=== PATIENT | female | born 1950 | race Caucasian/White ===

== ENCOUNTER → 2017-08-05 | Outpatient (CLI) | payer OTHER ==
[~2017-08-05] MED LIST: CLTP PO; METF500T PO; MULTTAB58 PO; NAPR1TAB9 PO; OMEG10007 PO; ZCRT/40 PO
--- NOTE | 2017-08-05 14:30 | MAMMOGRAPHY REPORT ---
BILATERAL DIGITAL SCREENING MAMMOGRAM TOMOSYNTHESIS WITH CAD: 08/05/2017 CLINICAL HISTORY: Routine screening. Patient has no complaints. TECHNIQUE: Breast tomosynthesis in addition to standard 2D mammography was performed. Current study was also evaluated with a Computer Aided Detection (CAD) system. COMPARISON: Comparison is made to exams dated: 04/19/2015 mammogram, 12/01/2013 mammogram, 08/04/2012 m ammogram, 07/30/2011 mammogram, 07/27/2010 mammogram, and 07/26/2009 mammogram - [facility]. BREAST COMPOSITION: There are scattered areas of fibroglandular density in both breasts. FINDINGS: There are stable benign-appearing microcalcifications in the right breast. A nodular asymm etry in the lateral right breast appears similar on prior mammograms dating back to at least 12/02/19 14 and is most likely benign given greater than 2 years of stability. A left breast asymmetry is les s prominent on the current exam. No new suspicious mass, architectural distortion or cluster of susp icious microcalcifications is seen. IMPRESSION: ACR BI-RADS CATEGORY 1: NEGATIVE There is no mammographic evidence of malignancy. A 1 year screening mammogram is recommended. The pa tient will receive written notification of the results. Approximately 10% of breast cancers are not detected with mammography. A negative mammographic report should not delay biopsy if a clinically suggestive mass is present. Inge Fonseca M.D. ay/:08/05/2017 12:42:18 [employer]: Nati Andrew, [facility] letter sent: Normal 1/2 BI-RADS Code: ACR BI-RADS Category 1: Negative
== END | disposition home or self-care (01) ==
LOC: C.MAMM 10:27
PROVIDERS: ATTEND Family Medicine
DX: Z12.31 Encounter for screening mammogram for malignant neoplasm of breast (principal)

== ENCOUNTER 2021-12-30 16:46 | Observation (INO) ==
[2021-12-30] MEDS ORDERED: ASPIRIN 81 MG CHEW PO STA (17:12)
--- NOTE | 2021-12-30 17:20 | Emergency Department Note ---
History of Present Illness General Chief complaint: Chest Pain Stated complaint: CHEST PAIN, DIZZINESS Time Seen by Provider: 12/30/21 17:01 Source: patient and family ( who is at the bedside) Mode of arrival: ambulatory Limitations: no limitations History of Present Illness Maximum Pain Intensity: 4 This patient is 71-year-old female who comes in after having episode of chest pain which started 1:00 she describes as a dull ache. She took 81 mg of aspirin and said it helped significantly and now it is down about a 4 out of 10. She does have ongoing epigastric pain which she had last night she has had this for about a year is worse at night and she was put on omeprazole by her doctor. She said that last night she had some took some Pepto once asleep and felt better she woke up and had it again. With the chest pain today she did have some slight nausea she also had episode of diarrhea this morning without blood. She has had no diaphoresis no shortness of breath the pain does radiate to her neck and back a little bit she says it may be slightly pleuritic at time it slightly increases with palpation she has noticed no change with movement and nothing else makes it better or worse. No history of similar. No known cardiac history Home Medications Medication Instructions Recorded Confirmed Type atorvastatin 40 mg tablet 40 mg PO HS 12/30/21 12/30/21 History canagliflozin 300 mg tablet 300 mg PO DAILYBB 12/30/21 12/30/21 History (Invokana) linagliptin 5 mg tablet (Tradjenta) 5 mg PO .DAILY AT NOON 12/30/21 12/30/21 History metformin 1,000 mg tablet 1,000 mg PO . ON HOLD 12/30/21 12/30/21 History omeprazole 40 mg capsule,delayed 40 mg PO DAILYBB 12/30/21 12/30/21 History release Allergies Allergy/AdvReac Type Severity Reaction Status Date / Time fluconazole AdvReac Mild 'ITCHY' Unverified 12/30/21 20:27 Past Med/Surg History Social History Smoking Status: Never smoker Immunizations: Past medical historytype 2 diabetes. Not on insulin. No hypertension. She does have hypercholesteremia. Denies known history of cardiac disease, pulm onary disease, blood clots. She has had her gallbladder removed. Family historyher mother had coronary artery disease/[place] Social history she does not smoke or drink or use drugs. She is and lives locally with her . She is followed by Dr. Shah AllergiesDiflucan Review of Systems A total of 10 systems reviewed and were otherwise negative Physical Exam Vital Signs Vital Signs - 24 hr 12/30/21 16:49 12/30/21 17:27 12/30/21 17:35 Temperature 37.1 C Temperature Source Temporal Artery Scan Pulse Rate 80 Pulse Rate [Left] 78 Pulse Rhythm [Left] Regular Pulse Strength [Left] Normal Respiratory Rate 18 16 Respiratory Effort / Characteristics Non-Labored Respiratory Depth Normal Blood Pressure 154/78 H Blood Pressure [Left Arm] 144/87 H Blood Pressure Mean 103 Blood Pressure Mean [Left Arm] 106 Blood Pressure Position [Left Arm] Lying Pulse Oximetry 96 100 97 Oxygen Delivery Method Room Air Room Air Sepsis Recent Fever Within 48 Hours No Sepsis New/Unexplained Change in Mental Status No Sepsis Action Taken by Nursing No Action Required 12/30/21 19:10 12/30/21 20:18 Temperature Temperature Source Pulse Rate Pulse Rate [Left] 72 71 Pulse Rhythm [Left] Regular Pulse Strength [Left] Normal Respiratory Rate 18 21 Respiratory Effort / Characteristics Non-Labored Spontaneous Non-Labored Spontaneous Respiratory Depth Normal Normal Blood Pressure Blood Pressure [Left Arm] 127/76 126/74 Blood Pressure Mean Blood Pressure Mean [Left Arm] 93 91 Blood Pressure Position [Left Arm] Sitting Sitting Pulse Oximetry 97 97 Oxygen Delivery Method Room Air Room Air Sepsis Recent Fever Within 48 Hours Sepsis New/Unexplained Change in Mental Status Sepsis Action Taken by Nursing General: Well developed well nourished older female who appears in no acute distress, breathing comfortably on room air. Normal speech HEENT: Normal cephalic atraumatic. Pupils are equal round and reactive to light. Extraocular movements are intact. Oropharynx is pink with moist mucous membranes. No swelling of the mouth lips or tongue. Neck: Supple with a midline trachea. No meningeal signs or stiffness, no JVD or bruits. No Stridor. Chest: Clear to auscultation bilaterally. No wheezes or rhonchi. No increased work of breathing. Chest is minimally reproducibly tender. Heart: Regular rate and rhythm without murmurs or gallops. Abdomen: Soft nontender, nondistended without rebound guarding or rigidity. Extremities: No cyanosis clubbing or edema. No calf tenderness or assymetry Spine/Back. Non tender to palpation. No CVA tenderness Skin: Good turgor without rashes. Neurologic exam: Cranial nerves two through 12 are intact. Motor and sensation are intact and symmetrical throughout. Procedures Free Text Procedures Start Time:17:12 12/30/21 Reason: Patient with PMHx of diabetes and recent chest pain underwent ED Observation for chest pain. Fam Hx: Coronary artery disease SocHx: See Below Summary: This patient has been having chest pain and was observed in the ED. She was placed on a housecleaner floor and blood testing was obtained as well as an EKG. Her initial EKG does not show any STEMI changes she does have some nonspecific T wave flattening and inversions which may be more pronounced compared to old. Her initial troponin is mildly elevated. She had a second troponin which is also mildly elevated but is trending upward compared to the first her EKG is unchanged. Based on this I do believe she needs to be admitted for further treatment and evaluation as there is concern for a cardiac event. She has remained stable. When I rechecked her after the second troponin was back she was resting comfortably in bed and denied any chest pain she was eating a meal. Disposition: Admit 12/31/21. 0022 Total Time: 7 hours 44 min Course Administered Medications Atorvastatin Calcium (Atorvastatin 40 Mg Tab) 40 mg PO HS AVRIL Stop: 01/29/22 23:14 Last Admin: 12/31/21 00:10 Dose: 40 mg Documented by: [id number] Insulin Aspart (Insulin Aspart Per Unit) 0 units SC Q6 AVRIL Stop: 01/29/22 23:14 Last Admin: 12/31/21 00:11 Dose: 2 units Documented by: [id number] Cosigned by: [id number] Insulin Glargine (Insulin Glargine Solostar 100 Units/Ml 3 Ml Pen) 5 units SC HS AVRIL Stop: 01/29/22 23:14 Last Admin: 12/31/21 00:14 Dose: 5 units Documented by: [id number] Cosigned by: [id number] Discontinued Medications Aspirin (Aspirin 81 Mg Chew) 243 mg PO NOW STA Stop: 12/30/21 17:13 Last Admin: 12/30/21 17:27 Dose: 243 mg Documented by: [id number] Ioversol (Optiray 320 125ml) 120 ml IV ONCE ONE Stop: 12/30/21 18:55 Last Admin: 12/30/21 18:56 Dose: 120 ml Documented by: [id number] Medical Decision Making Differential Diagnosis Acute coronary syndrome, arrhythmia, GERD, aneurysm, CHF, pulmonary disease, peptic ulcer disease, infection, pancreatitis, electrolyte or metabolic abnormality, COVID Medical Records Attestation: I reviewed the patient's medical records. Home Medications Current Medication List: was personally reviewed by me Laboratory Data Attestation: I reviewed the patient's lab results. Result diagrams: 12/30/21 17:05 12/30/21 17:05 Lab Results 12/30/21 12/30/21 12/30/21 Range/Units 17:05 17:05 17:05 WBC 10.00 (4.8-10.8) K/uL RBC 4.51 (4.2-5.4) M/uL Hgb 13.9 (12.0-16.0) g/dL Hct 43.0 (37-47) % MCV 95.3 (80-100) fL MCH 30.8 (25-34) pg MCHC 32.3 (32-36) g/dL RDW Std Deviation 48.1 H (36.4-46.3) fL RDW Coeff of Susan 13.8 (11.5-14.5) % Plt Count 381 (130-400) K/uL MPV 9.2 (7.4-10.4) fL Immature Gran % (Auto) 0.0 % Neut % (Auto) 62.0 % Lymph % (Auto) 28.1 % [place] % (Auto) 7.0 % Eos % (Auto) 2.3 % Baso % (Auto) 0.6 % Neut # (Auto) 6.20 (1.4-6.5) K/uL Lymph # (Auto) 2.81 (1.2-3.4) K/uL [place] # (Auto) 0.70 H (0.11-0.59) K/uL Eos # (Auto) 0.23 (0-0.5) K/uL Baso # (Auto) 0.06 (0-0.2) K/uL Immature Gran # (Auto) 0.00 (0.00-0.02) K/uL PT 10.5 (9.0-12.0) Seconds INR 1.0 (0.9-1.1) APTT 24.5 (21.0-31.0) Seconds PTT Ratio 0.9 D-Dimer 630 H* (0-500) ug/L FEU Sodium 137 (136-145) mmol/L Potassium 3.7 (3.5-5.1) mmol/L Chloride 100 (98-107) mmol/L Carbon Dioxide 25 (21-32) mmol/L Anion Gap 12 H (3-11) BUN 21 (6-23) mg/dl Creatinine 0.73 (0.6-1.2) mg/dl Est Cr Clr Drug Dosing 54.9 ml/min Est GFR ( Amer) 97.4 ml/min Est GFR (Non-Af Amer) 84.0 ml/min BUN/Creatinine Ratio 28.8 H (10-20) Glucose 151 H (70-99(Fasting)) mg/dl Calcium 9.4 (8.5-10.1) mg/dl Total Bilirubin 0.5 (0.2-1.0) mg/dl AST 24 (13-39) U/L ALT 23 (7-52) U/L Alkaline Phosphatase 107 H (34-104) U/L Troponin I High Sens 62.2 H* (0-14) pg/ml Total Protein 8.3 (6.0-8.3) gm/dl Albumin 4.5 (3.4-5.0) gm/dl Globulin 3.8 (2.5-4.0) gm/dl Albumin/Globulin Ratio 1.2 (0.9-2) Lipase 44 (11-82) U/L SARS-CoV-2, RNA, NAAT (NEGATIVE) 12/30/21 12/30/21 Range/Units 17:30 19:08 WBC (4.8-10.8) K/uL RBC (4.2-5.4) M/uL Hgb (12.0-16.0) g/dL Hct (37-47) % MCV (80-100) fL MCH (25-34) pg MCHC (32-36) g/dL RDW Std Deviation (36.4-46.3) fL RDW Coeff of Susan (11.5-14.5) % Plt Count (130-400) K/uL MPV (7.4-10.4) fL Immature Gran % (Auto) % Neut % (Auto) % Lymph % (Auto) % [place] % (Auto) % Eos % (Auto) % Baso % (Auto) % Neut # (Auto) (1.4-6.5) K/uL Lymph # (Auto) (1.2-3.4) K/uL [place] # (Auto) (0.11-0.59) K/uL Eos # (Auto) (0-0.5) K/uL Baso # (Auto) (0-0.2) K/uL Immature Gran # (Auto) (0.00-0.02) K/uL PT (9.0-12.0) Seconds INR (0.9-1.1) APTT (21.0-31.0) Seconds PTT Ratio D-Dimer (0-500) ug/L FEU Sodium (136-145) mmol/L Potassium (3.5-5.1) mmol/L Chloride (98-107) mmol/L Carbon Dioxide (21-32) mmol/L Anion Gap (3-11) BUN (6-23) mg/dl Creatinine (0.6-1.2) mg/dl Est Cr Clr Drug Dosing ml/min Est GFR ( Amer) ml/min Est GFR (Non-Af Amer) ml/min BUN/Creatinine Ratio (10-20) Glucose (70-99(Fasting)) mg/dl Calcium (8.5-10.1) mg/dl Total Bilirubin (0.2-1.0) mg/dl AST (13-39) U/L ALT (7-52) U/L Alkaline Phosphatase (34-104) U/L Troponin I High Sens 88.7 H* D (0-14) pg/ml Total Protein (6.0-8.3) gm/dl Albumin (3.4-5.0) gm/dl Globulin (2.5-4.0) gm/dl Albumin/Globulin Ratio (0.9-2) Lipase (11-82) U/L SARS-CoV-2, RNA, NAAT NEGATIVE (NEGATIVE) Imaging Data Attestation: I personally reviewed and interpreted this imaging study as follows: My Impression: Chest x-rayno acute infiltrate, failure, pneumothorax seen Radiologist's Impression: Chest X-Ray 12/30/21 17:12 XR chest 1V portable CLINICAL HISTORY: Chest Pain. COMPARISON STUDY: No previous studies for comparison. TECHNIQUE: 1 view of the chest FINDINGS: Single frontal view of the chest demonstrates the cardiomediastinal silhouette to be within normal limits. The lungs are clear of alveolar opacities. There is no evidence for pleural effusion. There is no evidence for vascular congestion. There is no acute osseous pathology. IMPRESSION: 1. No acute cardiopulmonary disease. ACT 112: Negative or not required by law. Electronically signed by: Eulogio Chase M.D. 12/30/2021 5:32 PM Chest CTA 12/30/21 18:23 CT angio chest PE protocol CLINICAL HISTORY: Chest pain and shortness of breath. Dizziness. COMPARISON STUDY: Portable chest from 12/30/2021 CT DOSE: 263.67 mGy.cm TECHNIQUE: CT Angio of the chest was performed.followed by image post proces sing with coronal, and sagittal MIP reformats. Contrast Volume: Optiray 320, 120 ml FINDINGS: Vasculature: There is homogeneous perfusion of the pulmonary vasculature bilaterally. No intraluminal filling defects or evidence for pulmonary embolus is seen. Airway: The airway is clear. No endobronchial lesion is identified. Lungs: The lungs are clear of acute alveolar opacities, air bronchograms or pulmonary nodules. Pleura: There is no evidence for pleural effusion. There is no evidence for pneumothorax. Mediastinum: There is no evidence for pathologic adenopathy. The heart size is within normal limits. The thoracic aorta is within normal limits. There is no evidence for pericardial effusion. Upper abdomen:The adrenal glands are normal bilaterally. Osseous structures: There is no acute osseous pathology. Impression: 1. No CTA evidence for pulmonary embolus. 2. No acute chest disease. ACT 112: Negative or not required by law. Electronically signed by: Eulogio Chase M.D. 12/30/2021 7:23 PM ECG Data Attestation: I personally reviewed and interpreted this ECG as follows: Indication: + chest pain Rate (beats per minute): 73 Rhythm: + normal sinus ECG Intervals/blocks: + Left anterior fascicular block, + Normal QRS, + Normal QT and + Normal FL ECG [place]: + Left axis deviation ECG ST segments: + Nonspecific ST abnormalities ECG Findings: no PACs or no PVCs Comparison ECG Date: from (08/25/97) Change: the following changes noted (There are now a nonspecific ST and T wave abnormalities where the T waves appear more flattened particularly anteriorly and inferiorly) Additional Comments: EKG #2: Normal sinus rhythm rate of 77. Left anterior fascicular block. Nonspecific T wave abnormalities with some T wave inversions and flattening anteriorly and inferiorly. No change compared to EKG MDM Narrative This patient comes in as described above. She was placed on a housecleaner floor i n room C3. She is here for treatment evaluation of chest pain. She was placed in ED observation. She did take a baby aspirin prior to arrival and is feeling a lot better. She looks well and stable vital signs. Initial EKG has some nonspecific changes but nothing to suggest STEMI. I did give her additional 3 baby aspirin's. A full cardiac work-up was obtained. I did a chest x-ray and EKG as well. She was reassessed frequently. She is feeling significantly better and has minimal discomfort. I did a follow-up EKG and there is no change compared to the first she does have some nonspecific T wave abnormalities with T wave inversions which is concerning for underlying cardiac disease but again no STEMI. Her initial troponin was mildly elevated with a second pending. Her D- dimer is also elevated mildly and I did a CTA of her chest. Her chest x-ray does not suggest congestive heart failure, pneumonia, pneumothorax. she has no significant electrolyte or metabolic abnormalities. CT of the chest was unremarkable. Her second EKG is unchanged compared to the first but her troponin is continued to rise. As mentioned above when I rechecked her she had no pain and was resting very comfortably. She will need to be admitted for further treatment and evaluation. Dr. Monroe was consulted. Continuous housecleaner floor: Orders placed in EMR for continuous housecleaner floor. At home interpretation patient noted to be in normal sinus rhythm with a rate of 80 Impression & Plan Chest pain, Diabetes mellitus type 2 in nonobese, Family history of coronary artery disease, Lab test negative for COVID-19 virus, Elevated troponin Discharge Plan Visit Data Chief Complaint: Chest Pain Stated Complaint: CHEST PAIN, DIZZINESS ED Provider: Hector Tom Discharge Problem: Chest pain, Diabetes mellitus type 2 in nonobese, Family history of coronary artery disease, Lab test negative for COVID-19 virus, Elevated troponin Patient Disposition: Admitted As Inpatient Discharge Instructions Interventions: ED Discharge Assessment Last Done: 12/30/21 23:10 Discharge Problem: Chest pain Qualifiers: Chest pain type: precordial pain Qualified Code(s): R07.2 - Precordial pain
[2021-12-30 17:23] LABS: Basophils # (auto) 0.06 K/uL (0-0.2); Basophils % (auto) 0.6 %; Eosinophils # (auto) 0.23 K/uL (0-0.5); Eosinophils % (auto) 2.3 %; Hemoglobin 13.9 g/dL (12.0-16.0); Lymphocytes # (auto) 2.81 K/uL (1.2-3.4); Lymphocytes % (auto) 28.1 %; Mean Corpuscular Hemoglobin 30.8 pg (25-34); Mean Corpuscular Hgb Conc 32.3 g/dL (32-36); Mean Corpuscular Volume 95.3 fL (80-100); Mean Platelet Volume 9.2 fL (7.4-10.4); Platelet Count 381 K/uL (130-400); RDW Coefficient of Variation 13.8 % (11.5-14.5); RDW Standard Deviation 48.1 fL (36.4-46.3); Red Blood Count 4.51 M/uL (4.2-5.4)
--- NOTE | 2021-12-30 17:34 | XRay Report ---
XR chest 1V portable CLINICAL HISTORY: Chest Pain. COMPARISON STUDY: No previous studies for comparison. TECHNIQUE: 1 view of the chest FINDINGS: Single frontal view of the chest demonstrates the cardiomediastinal silhouette to be within normal li mits. The lungs are clear of alveolar opacities. There is no evidence for pleural effusion. There is no evidence for vascular congestion. There is no acute osseous pathology. IMPRESSION: 1. No acute cardiopulmonary disease. ACT 112: Negative or not required by law. Electronically signed by: Eulogio Chase M.D. 12/30/2021 5:32 PM
[2021-12-30 17:50] LABS: Troponin I High Sensitivity 62.2 pg/ml (0-14)
[2021-12-30 17:52] LABS: Partial Thromboplastin Ratio 0.9; Partial Thromboplastin Time 24.5 Seconds (21.0-31.0); Prothrombin Time 10.5 Seconds (9.0-12.0)
[2021-12-30 17:55] LABS: Albumin Globulin Ratio 1.2 (0.9-2); Albumin Level 4.5 gm/dl (3.4-5.0); BUN Creatinine Ratio 28.8 (10-20); Bilirubin,Total 0.5 mg/dl (0.2-1.0); Calcium 9.4 mg/dl (8.5-10.1); Creatinine Clr Calc Pharmacy 54.9 ml/min; Est GFR (African American) 97.4 ml/min; Globulin 3.8 gm/dl (2.5-4.0); Potassium 3.7 mmol/L (3.5-5.1); Total Protein 8.3 gm/dl (6.0-8.3)
[2021-12-30 18:04] LABS: D Dimer 630 ug/L FEU (0-500)
[2021-12-30] MEDS ORDERED: OPTIRAY 320 125ml IV ONE (18:54)
--- NOTE | 2021-12-30 19:25 | CT Scan Report ---
CT angio chest PE protocol CLINICAL HISTORY: Chest pain and shortness of breath. Dizziness. COMPARISON STUDY: Portable chest from 12/30/2021 CT DOSE: 263.67 mGy.cm TECHNIQUE: CT Angio of the chest was performed.followed by image post processing with coronal, and s agittal MIP reformats. Contrast Volume: Optiray 320, 120 ml FINDINGS: Vasculature: There is homogeneous perfusion of the pulmonary vasculature bilaterally. No intraluminal filling defects or evidence for pulmonary embolus is seen. Airway: The airway is clear. No endobronchial lesion is identified. Lungs: The lungs are clear of acute alveolar opacities, air bronchograms or pulmonary nodules. Pleura: There is no evidence for pleural effusion. There is no evidence for pneumothorax. Mediastinum: There is no evidence for pathologic adenopathy. The heart size is within normal limits. The thoracic aorta is within normal limits. There is no evidence for pericardial effusion. Upper abdomen:The adrenal glands are normal bilaterally. Osseous structures: There is no acute osseous pathology. Impression: 1. No CTA evidence for pulmonary embolus. 2. No acute chest disease. ACT 112: Negative or not required by law. Electronically signed by: Eulogio Chase M.D. 12/30/2021 7:23 PM
[2021-12-30] MEDS ORDERED: ONDANSETRON INJ 2 MG/ML 2 ML VIAL IV PRN (23:15)
[2021-12-30] MEDS ORDERED: POLYETHYLENE (MIRALAX) 17 GM PACK PO PRN (23:15)
[2021-12-30] MEDS ORDERED: ACETAMINOPHEN 325 MG TAB PO PRN (23:15)
[2021-12-30] MEDS ORDERED: SODIUM CHLORIDE 0.9% 1000ML 1,000 ML IV SCH (23:15)
[2021-12-30] MEDS ORDERED: ATORVASTATIN 40 MG TAB PO SCH (23:15)
[2021-12-30] MEDS ORDERED: NITROGLYCERIN SL 0.4 MG/TAB TAB SL PRN (23:15)
[2021-12-30] MEDS ORDERED: GLUCOSE 10 TABS/TUBE PO PRN (23:45)
[2021-12-30] MEDS ORDERED: DEXTROSE 50% 50 ML SYRINGE IV PRN (23:45)
[2021-12-30] MEDS ORDERED: CARBOHYDRATES FOR HYPOGLYCEMIA PO PRN (23:45)
[2021-12-30] MEDS ORDERED: GLUCOSE 40% GEL 15 GM TUBE PO PRN (23:45)
[2021-12-30] MEDS ORDERED: GLUCAGON FOR INJ 1 MG VIAL IM PRN (23:45)
[2021-12-31] MEDS: INSULIN ASPART PER UNIT SC SCH ×5 (00:11→20:34)
[2021-12-31] MEDS: INSULIN GLARGINE SOLOSTAR 100 UNITS/ML 3 ML PEN SC SCH ×2 (00:14→21:06)
--- NOTE | 2021-12-31 02:00 | History and Physical Report ---
DATE OF ADMISSION: 12/30/2021. CHIEF COMPLAINT: Chest pain. HISTORY OF PRESENT ILLNESS: This is a 71-year-old female with past medical history significant for type 2 diabetes, hyperlipidemia, multinodular thyroid, atherosclerosis of aorta, GERD, presents with chest pain. The patient says today around 1:00 p.m., she noticed chest discomfort about 8/10 in severity, radiating from the middle of the chest to both sides of the neck. She took some aspirin, seemed to relieve a little bit, but is not getting better, so she came to the ER. She has chronic epigastric pain, for which she takes omeprazole. She had that pain last night and she took Pepto-Bismol. She had a couple of episodes of diarrhea today in the morning that was supposedly black because of Pepto-Bismol. Normal bladder movements. No fever, no cough. No nausea, no shortness of breath, no sweating. She had some mild headache, better now. Had some dizziness, no blurred visions, no earache, no runny nose, no sore throat, no difficulty swallowing. Appetite is okay. No swelling in the legs. Otherwise, ambulates and climbs steps okay. ALLERGIES: FLUCONAZOLE. PAST MEDICAL HISTORY: As mentioned above. PAST SURGICAL HISTORY: Colonoscopy, ligation of oviducts, removal of nasal polyps, cholecystectomy. MEDICATIONS: The patient is on atorvastatin 40 mg p.o. at bedtime, canagliflozin 300 mg p.o. daily, Tradjenta 5 mg p.o. daily at noon, metformin 1000 mg daily, omeprazole 40 mg p.o. daily. FAMILY HISTORY: Significant for mother had heart disorder, hypertension, lung disorder; maternal grandmother had breast cancer. SOCIAL HISTORY: , no smoking, no alcohol, no drug use. REVIEW OF SYSTEMS: As per HPI. Rest of the review of systems is negative. PHYSICAL EXAMINATION: GENERAL: The patient is of moderate build, not in acute distress. VITAL SIGNS: Temperature 37.1, pulse 71, respiratory rate 21, blood pressure 126/74, oxygen 97% on room air. HEENT: Pupils equal, round, reactive to light. Oral mucosa moist. NECK: No JVD or neck masses. CARDIOVASCULAR: S1 and S2 heard. Regular rate and rhythm. No murmur, no gallop. RESPIRATORY SYSTEM: Normal AP diameter. No accessory muscle use. No wheezing, no crackles. ABDOMEN: Soft. Bowel sounds are present, nontender, no distention. CENTRAL NERVOUS SYSTEM: Cranial nerves II-XII grossly intact, nonfocal. EXTREMITIES: No edema, no erythema. LABORATORY: WBC 10, hemoglobin 13.9, hematocrit 43, platelets 381. PT 10.4, INR 1, APTT 24.5, D-dimer 640. Sodium 137, potassium 3.7, chloride 100, bicarb 25, BUN 21, creatinine 0.7, serum glucose 151, calcium 9.4, total bilirubin 0.5, AST 24, ALT 23, alkaline phosphatase 107. Troponin I high sensitivity 62, repeat is 88. Lipase 44. SARS-CoV-2 rapid test negative. IMAGING: CT of the chest, no PE, no acute disease in the chest. Chest x-ray, no acute cardiopulmonary disease. EKG: Normal sinus rhythm rate of 77. Left anterior fascicular block, no significant change was found. ASSESSMENT AND PLAN: This is a 71-year-old female who presents with chest pain. 1. Chest pain: Rule out acute coronary syndrome. Initial workup is negative. Risk factors of age, diabetes and hyperlipidemia. We will follow the serial enzymes, echocardiogram. We will keep n.p.o. after midnight. Consult cardiology for further recommendations. Closely monitor in the [facility]. 2. History of diabetes: Hold home medication and add Lantuse, insulin sliding scale. Follow the blood sugars, follow HbA1c levels. 3. Hyperlipidemia: Continue statin. Follow lipid profile. 4. Gastroesophageal reflux disease: Continue omeprazole. 5. Deep venous thrombosis prophylaxis: SCDs. DISPOSITION: We will observe in [facility]. PT/OT prior to discharge. Social Service to help with discharge planning. [facility] ID[facility] [id number] [facility]
[2021-12-31 05:15] LABS: Basophils # (auto) 0.04 K/uL (0-0.2); Basophils % (auto) 0.7 %; Eosinophils # (auto) 0.23 K/uL (0-0.5); Eosinophils % (auto) 4.1 %; Hematocrit (blood only) 39.2 % (37-47); Hemoglobin 12.7 g/dL (12.0-16.0); Immature Granulocytes # (auto) 0.01 K/uL (0.00-0.02); Immature Granulocytes % (auto) 0.2 %; Lymphocytes # (auto) 2.03 K/uL (1.2-3.4); Lymphocytes % (auto) 35.8 %; Mean Corpuscular Hgb Conc 32.4 g/dL (32-36); Mean Corpuscular Volume 92.5 fL (80-100); Mean Platelet Volume 9.2 fL (7.4-10.4); Monocytes # (auto) 0.54 K/uL (0.11-0.59); Monocytes % (auto) 9.5 %; Neutrophils # (auto) 2.82 K/uL (1.4-6.5); Neutrophils % (auto) 49.7 %; Platelet Count 310 K/uL (130-400); RDW Standard Deviation 47.2 fL (36.4-46.3); Red Blood Count 4.24 M/uL (4.2-5.4); White Blood Count 5.67 K/uL (4.8-10.8)
[2021-12-31 05:36] LABS: BUN Creatinine Ratio 31.6 (10-20); Calcium 9.1 mg/dl (8.5-10.1); Creatinine Clr Calc Pharmacy 70.3 ml/min; Est GFR (African American) 109.6 ml/min; Est GFR (Non-African American) 94.6 ml/min; Potassium 3.3 mmol/L (3.5-5.1)
[2021-12-31 05:42] LABS: Troponin I High Sensitivity 40.4 pg/ml (0-14)
[2021-12-31] MEDS: PANTOprazole 40 MG TAB PO SCH (06:36)
[2021-12-31 07:39] LABS: Estimated Average Glucose 200 mg/dl; Hemoglobin A1C 8.6 % (4.5-5.6)
[2021-12-31] MEDS: POTASSIUM CHLORIDE CRTAB 20 MEQ TABCR PO SCH ×2 (08:25→10:10)
[2021-12-31] MEDS ORDERED: PERFLUTREN LIPID MICROSPHERE (DEFINITY) IV ONE (09:22)
[2021-12-31] MEDS: ASPIRIN 81 MG ECTAB PO SCH (09:33)
--- NOTE | 2021-12-31 10:24 | Cardiology Consultation ---
Date of Consultation December 31, 2021 Assessment & Plan (1) NSTEMI (non-ST elevated myocardial infarction): (2) Thoracic aorta atherosclerosis: (3) Chest pain: (4) Diabetes mellitus type 2 in nonobese: (5) Elevated troponin: Patient presented to [facility] with complaints of chest discomfort. Upon arrival nonspecific EKG abnormalities particularly with T wave inversions in the inferior leads. High-sensitivity troponin minimally elevated now trending downwards. 2D echocardiogram shows RCA distribution hypokinesis. Will arrange for cardiac catheterization, patient in agreement with plan. Further recommendations to follow. History of Present Illness Reason for Consultation: chest pain Requesting Physician: AZEEM Attending Physician: Jovan Young MD History of Present Illness It was my pleasure to see Mrs. Horton in cardiac consultation today December 31, 2021. She is a very pleasant 71-year-old woman who presented to [facility] on 12/31/2021 with complaints of chest discomfort. She states her discomfort started yesterday afternoon at rest. She described it as a severe achy sensation in the center of her chest that radiated to her bilateral shoulders, neck and jaw. She denied any associated shortness of breath, diaphoresis or nausea. She took a baby aspirin and laid down and the discomfort seemed to dissipate for a while. However, later in the day it again started and she presented to the emergency department. Since admission she states that she has been chest discomfort free. Of note, she has been having longstanding issues with upper abdominal discomfort for which she has been treated for GERD without relief. Allergies Allergy/AdvReac Type Severity Reaction Status Date / Time fluconazole AdvReac Mild 'ITCHY' Unverified 12/30/21 20:27 Home Medications Medication Instructions Recorded Confirmed Type atorvastatin 40 mg tablet 40 mg PO HS 12/30/21 12/30/21 History canagliflozin 300 mg tablet 300 mg PO DAILYBB 12/30/21 12/30/21 History (Invokana) linagliptin 5 mg tablet (Tradjenta) 5 mg PO .DAILY AT NOON 12/30/21 12/30/21 History metformin 1,000 mg tablet 1,000 mg PO . ON HOLD 12/30/21 12/30/21 History omeprazole 40 mg capsule,delayed 40 mg PO DAILYBB 12/30/21 12/30/21 History release Patient History Social History Smoking Status: Never smoker Hx Alcohol Use: No Hx Substance Use: No Preferred Language: Nepali Communication Ability: Effective Supervisor Telephone Answering Service Required: Yes Beliefs That Will Affect Care: None Current Living Situation: Spouse Other Information That Helps Us Care for You: No Feels Safe at Home: Yes Safety Concerns: Feels Safe At This Time Assistive Devices: None Review of Systems Review of Systems: All systems reviewed & are unremarkable except as noted in HPI & below Physical Exam Physical Exam: General: Awake, alert and oriented x 3. No acute distress. HEENT: Normocephalic, atraumatic. Pupils equal, round and reactive to light and accommodation. Extraocular muscles are intact. Anicteric sclera. Moist mu cous membranes. Neck: No JVD. No bruit. Cardiovascular: Regular. Positive S-4. Normal S-1 and S-2. No S-3. No murmurs or rubs. Pulmonary: Clear to auscultation B/L. No rales, rhonchi or wheezing Abdomen: Bowel sounds x 4, soft. No rebound, guarding or tenderness. No organomegaly. Extremities: No clubbing, cyanosis or edema. +2 pedal pulses bilaterally. Skin: Warm and dry. Results & Data ([facility]) Vital Signs (Past 12 Hours) Vital Signs Temp Pulse Pulse Resp BP Pulse Ox Pulse Ox 12/31/21 08:00 65 12/31/21 06:38 36.6 C 64 20 115/65 95 12/31/21 05:07 64 16 115/65 94 95 12/31/21 02:17 63 14 147/78 H 96 95 12/31/21 00:25 68 16 110/64 96 12/30/21 23:29 37 C 77 16 105/58 L 97 12/30/21 22:30 65 16 104/57 L 94 (1) Chest pain Chest pain type: precordial pain Qualified Code(s): R07.2 - Precordial pain
--- NOTE | 2021-12-31 11:37 | Electrocardiogram Report ---
Test Reason : Blood Pressure : / mmHG Vent. Rate : 073 BPM Atrial Rate : 073 BPM P-R Int : 138 ms QRS Dur : 084 ms QT Int : 422 ms P-R-T Axes : 022 -48 -06 degrees QTc Int : 464 ms Normal sinus rhythm Left anterior fascicular block Minimal voltage criteria for LVH, may be normal variant Nonspecific ST and T wave abnormality Abnormal ECG When compared with ECG of 25-AUG-1997 20:10, Nonspecific T wave abnormality now evident in Inferior leads T wave inversion now evident in Anterolateral leads Confirmed by Choco Burrell ([id number]) on 12/31/2021 11:37:10 AM Referred By: REFERRED SELF Confirmed By:Homero Burrell
--- NOTE | 2021-12-31 11:40 | Electrocardiogram Report ---
Test Reason : Blood Pressure : / mmHG Vent. Rate : 068 BPM Atrial Rate : 068 BPM P-R Int : 148 ms QRS Dur : 088 ms QT Int : 452 ms P-R-T Axes : 016 -50 -59 degrees QTc Int : 480 ms Normal sinus rhythm Left anterior fascicular block Minimal voltage criteria for LVH, may be normal variant Cannot rule out Anterior infarct (cited on or before 30-DEC-2021) Abnormal ECG When compared with ECG of 30-DEC-2021 18:17, (unconfirmed) No significant change was found Confirmed by Choco Burrell ([id number]) on 12/31/2021 11:40:22 AM Referred By: REFERRED SELF Confirmed By:Homero Burrell
--- NOTE | 2021-12-31 11:40 | Electrocardiogram Report ---
Test Reason : Blood Pressure : / mmHG Vent. Rate : 077 BPM Atrial Rate : 077 BPM P-R Int : 140 ms QRS Dur : 082 ms QT Int : 430 ms P-R-T Axes : 004 -47 -19 degrees QTc Int : 486 ms Normal sinus rhythm Left anterior fascicular block Minimal voltage criteria for LVH, may be normal variant Nonspecific ST abnormality Abnormal ECG When compared with ECG of 30-DEC-2021 16:55, (unconfirmed) No significant change was found Confirmed by Choco Burrell ([id number]) on 12/31/2021 11:39:53 AM Referred By: REFERRED SELF Confirmed By:Homero Burrell
--- NOTE | 2021-12-31 14:50 | Pre Anesthesia Assessment ---
Date of Service December 31, 2021 Pre Sedation Assessment Vital Signs Temp Pulse Pulse Resp BP BP Pulse Ox 12/31/21 11:51 98.2 F 71 16 107/67 96 12/31/21 08:00 65 12/31/21 06:38 97.9 F 64 20 115/65 95 12/31/21 05:07 64 16 115/65 94 12/31/21 02:17 63 14 147/78 H 96 12/31/21 00:25 68 16 110/64 96 12/30/21 23:29 98.6 F 77 16 105/58 L 97 12/30/21 22:30 65 16 104/57 L 94 12/30/21 20:18 71 21 126/74 97 12/30/21 19:10 72 18 127/76 97 12/30/21 17:35 97 12/30/21 17:27 78 16 144/87 H 100 12/30/21 16:49 98.8 F 80 18 154/78 H 96 Pulse Ox 12/31/21 11:51 12/31/21 08:00 12/31/21 06:38 12/31/21 05:07 95 12/31/21 02:17 95 12/31/21 00:25 12/30/21 23:29 12/30/21 22:30 12/30/21 20:18 12/30/21 19:10 12/30/21 17:35 12/30/21 17:27 12/30/21 16:49 Cardiovascular RRR, no murmur, no edema Respiratory normal respiratory effort, lungs clear to auscultation Pre-Sedation Airway Assessment Smoking Status: Never smoker Hx Sleep Apnea: No Hx Difficult Intubation: No Short, Thick Neck: No Thyromental Distance: > or= 3.5 Finger Breadths Oral Cavity: + WNL Mallampati Class: III ASA: ASA4 NPO Status Date of Last Intake of Fluids: 12/31/21 Time of Last Intake of Fluids: 08:00 Last Oral Intake of Fluids Comment: sip with meds Date of Last Intake of Solid Food: 12/30/21 Procedure Planning Contraindications for Sedation: none Current Medications Reviewed: Yes Notes The planned sedation has been discussed with the patient. Informed Consent was obtained. I have identified the patient, determined the appropriateness of sedation and have assessed the patient immediately prior to the procedure. All medicine(s) and interventions are by my order.
[2021-12-31] MEDS ORDERED: MIDAZOLAM HCL 1 MG/ML 2ML VIAL ONE (15:01)
[2021-12-31] MEDS ORDERED: HEPARIN (PORCINE) 1000 UNIT/ML 10 ML (CATH LAB USE ONLY) ONE (15:02)
[2021-12-31] MEDS ORDERED: niCARdipine HCL INJ 2.5 MG/ML 10 ML AMP ONE (15:02)
[2021-12-31] MEDS ORDERED: fentaNYL citrate 100 MCG/2 ML VIAL ONE (15:02)
[2021-12-31] MEDS ORDERED: NITROGLYCERIN/D5W 100MCG/ML 20ML SYR ONE (15:03)
--- NOTE | 2021-12-31 16:32 | Post Anesthesia Assessment ---
Date of Service December 31, 2021 Post Sedation Assessment Vital Signs Temp Pulse Pulse Resp BP BP Pulse Ox 12/31/21 16:16 71 16 103/64 93 12/31/21 16:05 68 16 136/70 96 12/31/21 11:51 98.2 F 71 16 107/67 96 12/31/21 08:00 65 12/31/21 06:38 97.9 F 64 20 115/65 95 12/31/21 05:07 64 16 115/65 94 12/31/21 02:17 63 14 147/78 H 96 12/31/21 00:25 68 16 110/64 96 12/30/21 23:29 98.6 F 77 16 105/58 L 97 12/30/21 22:30 65 16 104/57 L 94 12/30/21 20:18 71 21 126/74 97 12/30/21 19:10 72 18 127/76 97 12/30/21 17:35 97 12/30/21 17:27 78 16 144/87 H 100 12/30/21 16:49 98.8 F 80 18 154/78 H 96 Pulse Ox 12/31/21 16:16 12/31/21 16:05 12/31/21 11:51 12/31/21 08:00 12/31/21 06:38 12/31/21 05:07 95 12/31/21 02:17 95 12/31/21 00:25 12/30/21 23:29 12/30/21 22:30 12/30/21 20:18 12/30/21 19:10 12/30/21 17:35 12/30/21 17:27 12/30/21 16:49 Recovery Score Activity: Moves 4 extremities Respiration: Deep Breath/Cough Circulation: +/-20% PreAnes Value Consciousness: Fully Awake Oxygen Saturation: > 92% On Room Air Post Anesthesia Score: 10 Discharge Sedation Level of Care: Fast Track Phase II Post Sedation Plan On clinical assessment, the patient appears to have tolerated the sedation without complications. Patient is recovering as anticipated. Patient will continue to be monitored by nursing and may be discharged when sedation discharge criteria are met per below protocol. Upon Completions of procedure up to 15 minutes continue every 5 minute vital signs and the P.A.R. score; then discharge to a Phase I or Fast Track to Phase II per the following guidelines: * Discharge Patient to appropriate Phase II area if PAR is 8 or greater or return to pre- procedure baseline. The post - procedure orders will be as directed. * If PAR score is less than 8 or not return to pre-procedure baseline then patient will follow Phase I monitoring till PAR is reached for Phase II. The Phase I may be done in procedure room or may call to secure a Phase I area. * If naloxone or flumazenil are used for reversal, hold in Phase I for continued monitoring from when last reversal dose was given for a minimum of 60 minutes or longer pending the nurse and/or physician discretion of patient condition before discharge to Phase II. Please call the Sedation Physician to re-evaluate and complete post-note for discharge to Phase II area. Do NOT discharge from procedure sedation or Phase 1 until post- sedation evaluation note is complete by procedure /sedation MD Sedation Discharge Instructions to be given to the patient at discharge to home.
[2021-12-31] MEDS ORDERED: SODIUM CHLORIDE 0.9% 1000ML 1,000 ML IV SCH (16:45)
--- NOTE | 2021-12-31 16:45 | Cardiac Catheterization ---
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 Cardiac Status Clinical evaluation leading to the procedure CAD Presenation: Non STEMI Diagnostic Physicians Name: Choco Jeffries MD Closure Device Recommendations: Medical Therapy and/or Counseling Cardiac Cath Procedure Full Procedure Date December 31, 2021 Pre-Procedure Diagnosis Pre-Procedure Diagnosis: Non STEMI and Cardiomyopathy AUC Score AUC Score: 7 Post-Procedure Diagnosis Post-Procedure Diagnosis: Moderate CAD and Normal Intracardiac Pressures Procedure(s) Performed Procedure(s) Performed: Coronary Angiography, Left Heart Cath and Femoral Artery Angiography [employer] Piping Designer Choco Jeffries MD Label Paster(s) Marty Estimated Blood Loss Estimated Blood Loss: 10 Medication(s) Medication(s): Fentanyl, Heparin, Lidocaine 1%, Nicardipine, Nitroglycerin and Versed Summary of Findings Indication: Chest pain, minimally elevated troponin, new inferolateral wall motion abnormality on echo Access: 6 Fr right radial artery (under ultrasound guidance), 5 Fr right MAINTENANCE SUPERVISOR (under ultrasound guidance). -Wire navigated from regular position into ascending aorta but unable to pass 4Fr catheters past brachial artery spasm despite vasodilators, sedation and more supportive wires. Converted to femoral approach. Catheters: [place], 4 Fr JR4, 5 Fr JR4, 5 Fr JL 4 Findings: LM -normal caliber, short, angiographically normal LAD -medium caliber, 20% mid segment disease. Remainder of vessel without disease and wraps around apex. Circumflex -medium caliber, 40% mid segment stenosis. Medium OM 2 without disease RCA -large caliber, dominant, midsegment luminal irregularities. Medium RPDA without significant disease IVUS of circumflex Left main cannulated with 5 Fr EBU 3.5 guide BMW wire navigated into distal OM [place] IVUS catheter placed across mid stenosis Pullback revealed mild to moderate (40 to 50% by IVUS) atherosclerotic plaque, noncalcified in the midsegment. No acute thrombus. Remainder of vessel including left main without significant disease LVEDP - 2 Arterial Closure: TR band Summary: 1. Mild to moderate nonobstructive coronary artery disease -40% mid circumflex stenosis (no acute thrombus by IVUS) 20% mid LAD 2. Normal intracardiac filling pressure Recommendations: Continued ASCVD risk factor modification per Dr. March Hemodynamics Rest Ao:: 105/59/82 Final Ao: 104/55/75 LV: 99/2 Recommendations Recommendations: Medical Therapy and/or Counseling Specimens Specimens: None Radiation Exposure (mGy) 559 Contrast (mls) 30 Drains Drains: none Anesthesia moderate 7350-0452 Procedural Complication(s) None Disposition PCU I attest to the content of the Intraoperative Record and any orders documented therein. Any exceptions are noted below. [facility] Procedure Codes Cardiac Catheterization Procedure 1: Cardiovascular Cath Procedures: 20380 Coronaries and LHC (+/-LV) Therapeutic Services & Ancillary Proc Procedure 1: Cardiovascular Tx and Anc Procedures: 76091 Ultrasonic Guidance Vascular Access Procedure 2: Cardiovascular Tx and Anc Procedures: 59557 Ultrasonic Guidance Vascular Access Procedure 3: Cardiovascular Tx and Anc Procedures: 94448 IV Ultrasound (Coronary or Graft) Moderate Sedation Procedure 1: Sedation/Anesthesia: 23068 Mod Sedation by the same physician;Init15 Min Child Age 5 & Up Procedure 2: Sedation/Anesthesia: 65613 Mod Sedation by the same physician; Ea [id number] Minutes PG Care Time/CCT Total # of Minutes Spent Total Time Spent with Patient: Total time spent is greater than 50% in coordination of care (as documented) at patient's floor/unit and/or counseling patient:
--- NOTE | 2021-12-31 17:09 | Hospitalist Progress Note ---
Date of Service December 31, 2021 Assessment & Plan (1) Chest pain: Plan: 71-year-old female with past medical history significant for type 2 diabetes, hyperlipidemia, multinodular thyroid, atherosclerosis of aorta, GERD, presented 12/30 with chest pain. The patient says on 12/30 around 1:00 p.m., she noticed chest discomfort about 8/10 in severity, radiating from the middle of the chest to both sides of the neck. She took some aspirin, seemed to relieve a little bit, but is not getting better, so she came to the ER. She has chronic epigastric pain, for which she takes omeprazole.She is being managed for the following: #. Chest pain: Presented w/ chest pain (see above) Rule out acute coronary syndrome. Admitting trop 62.2 f/b 88.7, downtrended afterwards. Admitting EKG w/ nonspecific T wave abnormality in inferior leads and T wave inversion in anterolateral leads. 12/31 Stress ECHO: EF 45-50%; severe hypokinesis of the inferior and inferoseptal yanez. Gr I diastolic dysfxn. s/p heart Cath 12/31: Mild to moderate nonobstructive CAD w/ normal intracardiac filling pressure. Cardilogy on board, appreciate recs. Pt w/ no further chest pain, monitor over tele. #. History of diabetes: Hold home medication and added Lantus, insulin sliding scale. Follow the blood sugars, follow HbA1c levels. #. Hyperlipidemia: Maximize statin. LDL 108 this admission. #. Gastroesophageal reflux disease: Continue omeprazole. #. Deep venous thrombosis prophylaxis: SCDs. Admission and Anticipated Discharge Date Admission Date: December 30, 2021 Subjective Patient seen and examined at bedside for follow-up of chest pain. Patient was lying in bed, on room air, no new acute events overnight. Patient d enies any further chest pain. Patient denies headache/dizziness/belly pain/other review of symptoms. Physical Exam Physical Exam: GENERAL: Alert and oriented x3. NAD, on RA. HEENT: No pallor, no icterus. Pupils equal, round and reactive to light. Oral mucosa moist. NECK: No JVD, no neck masses. HEART: S1 and S2 heard. Regular rate and rhythm. No murmur, no gallop. RESPIRATORY SYSTEM: Normal AP diameter. No accessory muscle use. No wheezing, no crackles. ABDOMEN: Soft, bowel sounds present, nontender, no distention. CENTRAL NERVOUS SYSTEM: No facial droop. Speech is clear. Obeys simple commands. Moves extremities. EXTREMITIES: No edema, no erythema seen. Results & Data Results & Data ([facility]) Vital Signs (Past 12 Hours) Vital Signs Temp Pulse Pulse Resp BP Pulse Ox Pulse Ox 12/31/21 16:53 70 12/31/21 16:33 36.6 C 72 16 119/68 95 12/31/21 16:16 71 16 103/64 93 12/31/21 16:05 68 16 136/70 96 12/31/21 11:51 36.8 C 71 16 107/67 96 12/31/21 08:00 65 12/31/21 06:38 36.6 C 64 20 115/65 95 12/31/21 05:07 64 16 115/65 94 95 (1) Chest pain Chest pain type: precordial pain Qualified Code(s): R07.2 - Precordial pain
[2021-12-31] MEDS ORDERED: Nursing to Pharmacy Communication SCH (17:30)
--- NOTE | 2021-12-31 18:40 | Electrocardiogram Report ---
Test Reason : Blood Pressure : / mmHG Vent. Rate : 072 BPM Atrial Rate : 072 BPM P-R Int : 146 ms QRS Dur : 082 ms QT Int : 478 ms P-R-T Axes : 014 -49 -60 degrees QTc Int : 523 ms Normal sinus rhythm Left anterior fascicular block T wave abnormality, consider inferior ischemia T wave abnormality, consider anterolateral ischemia Prolonged QT Abnormal ECG When compared with ECG of 31-DEC-2021 00:23, T wave inversion more evident in Inferior leads Confirmed by Choco Burrell ([id number]) on 12/31/2021 6:40:20 PM Referred By: REFERRED SELF Confirmed By:Homero Burrell
[2021-12-31] MEDS ORDERED: ATORVASTATIN 40 MG TAB PO SCH (21:00)
[2022-01-01] MEDS: PANTOprazole 40 MG TAB PO SCH (05:45)
[2022-01-01 07:44] LABS: Hematocrit (blood only) 38.2 % (37-47); Hemoglobin 12.5 g/dL (12.0-16.0); Mean Corpuscular Hemoglobin 30.7 pg (25-34); Mean Corpuscular Hgb Conc 32.7 g/dL (32-36); Mean Corpuscular Volume 93.9 fL (80-100); Mean Platelet Volume 9.1 fL (7.4-10.4); Platelet Count 314 K/uL (130-400); RDW Coefficient of Variation 13.9 % (11.5-14.5); RDW Standard Deviation 47.7 fL (36.4-46.3); Red Blood Count 4.07 M/uL (4.2-5.4); White Blood Count 5.04 K/uL (4.8-10.8)
[2022-01-01 08:05] LABS: BUN Creatinine Ratio 32.1 (10-20); Calcium 9.4 mg/dl (8.5-10.1); Creatinine Clr Calc Pharmacy 75.6 ml/min; Est GFR (African American) 112.3 ml/min; Est GFR (Non-African American) 96.9 ml/min; Magnesium 1.9 mg/dl (1.7-2.4)
[2022-01-01] MEDS: ASPIRIN 81 MG ECTAB PO SCH (08:21)
[2022-01-01] MEDS: INSULIN ASPART PER UNIT SC SCH ×2 (08:55→12:28)
--- NOTE | 2022-01-01 13:15 | Discharge Summary ---
Date of Service January 01, 2022 Admission HPI Per Admitting Provider CHIEF COMPLAINT: Chest pain. HISTORY OF PRESENT ILLNESS: This is a 71-year-old female with past medical history significant for type 2 diabetes, hyperlipidemia, multinodular thyroid, atherosclerosis of aorta, GERD, presents with chest pain. The patient says today around 1:00 p.m., she noticed chest discomfort about 8/10 in severity, radiating from the middle of the chest to both sides of the neck. She took some aspirin, seemed to relieve a little bit, but is not getting better, so she came to the ER. She has chronic epigastric pain, for which she takes omeprazole. She had that pain last night and she took Pepto-Bismol. She had a couple of episodes of diarrhea today in the morning that was supposedly black because of Pepto-Bismol. Normal bladder movements. No fever, no cough. No nausea, no shortness of breath, no sweating. She had some mild headache, better now. Had some dizziness, no blurred visions, no earache, no runny nose, no sore throat, no difficulty swallowing. Appetite is okay. No swelling in the legs. Otherwise, ambulates and climbs steps okay. ALLERGIES: FLUCONAZOLE. PAST MEDICAL HISTORY: As mentioned above. PAST SURGICAL HISTORY: Colonoscopy, ligation of oviducts, removal of nasal polyps, cholecystectomy. MEDICATIONS: The patient is on atorvastatin 40 mg p.o. at bedtime, canagliflozin 300 mg p.o. daily, Tradjenta 5 mg p.o. daily at noon, metformin 1000 mg daily, omeprazole 40 mg p.o. daily. FAMILY HISTORY: Significant for mother had heart disorder, hypertension, lung disorder; maternal grandmother had breast cancer. SOCIAL HISTORY: , no smoking, no alcohol, no drug use. REVIEW OF SYSTEMS: As per HPI. Rest of the review of systems is negative. Admission Exam Per Admitting Provider GENERAL: The patient is of moderate build, not in acute distress. VITAL SIGNS: Temperature 37.1, pulse 71, respiratory rate 21, blood pressure 126/74, oxygen 97% on room air. HEENT: Pupils equal, round, reactive to light. Oral mucosa moist. NECK: No JVD or neck masses. CARDIOVASCULAR: S1 and S2 heard. Regular rate and rhythm. No murmur, no gallop. RESPIRATORY SYSTEM: Normal AP diameter. No accessory muscle use. No wheezing, no crackles. ABDOMEN: Soft. Bowel sounds are present, nontender, no distention. CENTRAL NERVOUS SYSTEM: Cranial nerves II-XII grossly intact, nonfocal. EXTREMITIES: No edema, no erythema. Principal Diagnosis chest pain r/o ACS Discharge Exam GENERAL: Alert and oriented x3. NAD, on RA. HEENT: No pallor, no icterus. Pupils equal, round and reactive to light. Oral mucosa moist. NECK: No JVD, no neck masses. HEART: S1 and S2 heard. Regular rate and rhythm. No murmur, no gallop. RESPIRATORY SYSTEM: Normal AP diameter. No accessory muscle use. No wheezing, no crackles. ABDOMEN: Soft, bowel sounds present, nontender, no distention. CENTRAL NERVOUS SYSTEM: No facial droop. Speech is clear. Obeys simple commands. Moves extremities. EXTREMITIES: No edema, no erythema seen. Discharge Data Allergies Allergy/AdvReac Type Severity Reaction Status Date / Time fluconazole AdvReac Mild 'ITCHY' Unverified 12/30/21 20:27 Consultations 12/30/21 19:41 ED Decision to Admit Stat 12/31/21 08:00 Consult Cardiology Routine Procedures Performed Operation Date: 12/31/21 14:00 Actual Procedures p Cath, Left with Cors and Vent - Augie Jeffries MD s Cineradiography w/Routine Exam - Augie Jeffries MD s IVUS Coronary Single Vessel - Augie Jeffries MD s Ultrasound Vascular Access - Augie Jeffries MD Ordered Studies 12/30/21 18:23 CT angio chest PE protocol Stat 12/31/21 12:21 CL Cath Imgs for PACS use only Routine 12/31/21 16:18 CL IVUS Coronary Single Vessel Routine Hospital Course (1) Chest pain: 71-year-old female with past medical history significant for type 2 diabetes, hyperlipidemia, multinodular thyroid, atherosclerosis of aorta, GERD, presented 12/30 with chest pain. The patient says on 12/30 around 1:00 p.m., she noticed chest discomfort about 8/10 in severity, radiating from the middle of the chest to both sides of the neck. She took some aspirin, seemed to relieve a little bit, but is not getting better, so she came to the ER. She has chronic epigastric pain, for which she takes omeprazole.She was managed for the following: #. Chest pain: Presented w/ chest pain (see above) Rule out acute coronary syndrome. Admitting trop 62.2 f/b 88.7, downtrended afterwards. Admitting EKG w/ nonspecific T wave abnormality in inferior leads and T wave inversion in anterolateral leads. 12/31 Stress ECHO: EF 45-50%; severe hypokinesis of the inferior and inferoseptal yanez. Gr I diastolic dysfxn. s/p heart Cath 12/31: Mild to moderate nonobstructive CAD w/ normal intracardiac filling pressure. Cardilogy on board, appreciate recs. Pt w/ no further chest pain, monitor over tele. c/w aspirin and increased dose of atorvastatin. #. History of diabetes: Hold home medication and added Lantus, insulin sliding scale.OP follow w/ diabetic clinic or PCP for close halfway Mx. #. Hyperlipidemia: Maximize statin. LDL 108 this admission. #. Gastroesophageal reflux disease: Continue omeprazole. #. Deep venous thrombosis prophylaxis: SCDs. Patient is being discharged to home with following instruction at the point of discharge: Follow-up with the primary care physician within a week time. Your have been heart cathed while in hospital, no stents were placed. Your Lipitor has been increased to 80 mg every night. You have been started on aspirin. You have been prescribed nitroglycerin, you can use it when needed chest pain as directed. Call emergency or PCP immediately if with further unresolving chest pain. For your long-term effective control of your diabetes, follow-up closely with your outpatient PCP or you can set up with diabetic clinic. Take your medications as prescribed. Total Time Total Time Spent Total Time Spent (In Minutes): 35 Discharge Plan Discharge Items Patient Disposition: Home - Self-Care Reason For Visit: LLE CELLULITIS, DVT Discharge Diagnosis: Chest pain rule out ACS Activity: Resume your previous activity Non-emergency contact: Primary Care Provider Call non-emergency contact if: you have any medication questions, your symptoms worsen and your pain is worsening Follow-up/Referrals: Jose Blount MD [Primary Care Provider] - (Date & Time 01/07/2022 11:00 AM Provider Leonor Coates MD [facility] ) Diet: Carb Consistent or DM2 and Heart Healthy Addtl Attending Provider Instructions: Follow-up with the primary care physician within a week time. Your have been heart cathed while in hospital, no stents were placed. Your Lipitor has been increased to 80 mg every night. You have been started on aspirin. You have been prescribed nitroglycerin, you can use it when needed chest pain as directed. Call emergency or PCP immediately if with further unresolving chest pain. For your long-term effective control of your diabetes, follow-up closely with your outpatient PCP or you can set up with diabetic clinic. Take your medications as prescribed. Pending Studies at Discharge: No Stand-Alone Forms: My [facility] Team Products, Smoking Cessation Medications and DC Order Prescriptions: New atorvastatin 40 mg Tablet 80 mg PO HS Qty: 60 RF: 0 aspirin 81 mg Tablet,Delayed Release (Dr/Ec) 81 mg PO QAM Qty: 30 RF: 0 nitroglycerin [Nitrostat] 0.4 mg Tablet, Sublingual 0.4 mg sublingual UD PRN (Reason: chest pain) Qty: 30 RF: 0 Continued Tradjenta 5 mg tablet 5 mg PO .DAILY AT NOON RF: 0 Invokana 300 mg tablet 300 mg PO DAILYBB RF: 0 metformin 1,000 mg Tablet 1,000 mg PO . ON HOLD RF: 0 omeprazole 40 mg Capsule,Delayed Release(Dr/Ec) 40 mg PO DAILYBB RF: 0 Discontinued atorvastatin 40 mg Tablet 40 mg PO HS RF: 0 Discharge Orders: Discharge Order (Routine); Ordered 01/01/22 Ordered By: Nuria Marin/Other Patient Handouts: Managing Type 2 Diabetes Admission Data Admit Date/Time: 12/30/21 20:57 Attending Provider: Nuria Lux Admit Provider: Jovan Young Primary Care Provider: Jose Blount Other Providers: Frank March ; Vitor Bryant ; Jose Manuel Mcnamara ; Roman Pollard ; Diomedes Kohli ; Jf Duarte ; Cari Mak ; Anny Uribe ; Jyoti Gaines ; Wood Rangel ; Nuria Lux
--- NOTE | 2022-01-01 19:15 | Electrocardiogram Report ---
Test Reason : Blood Pressure : / mmHG Vent. Rate : 079 BPM Atrial Rate : 079 BPM P-R Int : 138 ms QRS Dur : 084 ms QT Int : 452 ms P-R-T Axes : -10 -49 -77 degrees QTc Int : 518 ms Normal sinus rhythm Left anterior fascicular block Minimal voltage criteria for LVH, may be normal variant T wave abnormality, consider inferior ischemia T wave abnormality, consider anterolateral ischemia Poor R wave progression, consider anterior RI vs. lead placement vs. LVH Prolonged QT Abnormal ECG When compared with ECG of 31-DEC-2021 13:40, No significant change was found Confirmed by Choco Burrell ([id number]) on 01/01/2022 7:15:38 PM Referred By: REFERRED SELF Confirmed By:Homero Burrell
== END 2022-01-01 14:26 | disposition home or self-care (01) ==
LOC: EDINP 16:46 → ED 16:46 → SUATTDRO 20:57 → 2E 23:10

== ENCOUNTER 2024-06-01 22:56 | Inpatient (IN) ==
[2024-06-01] MEDS: SODIUM CHLORIDE 0.9% 1,000 ML IV SCH (23:50)
--- NOTE | 2024-06-01 23:52 | Emergency Department Note ---
Impression & Plan Abdominal pain, Nausea & vomiting, Diarrhea, Acute pyelonephritis, Hypomagnesemia, Hypokalemia, Generalized weakness, Hyperglycemia ED Provider Note ED Provider Note NAME: DOUG MARES AGE:73 SEX: Female : 1950 ARRIVES VIA: Private vehicle INFORMANT: Patient ED PROVIDER(s): Meena Padilla DO CHIEF COMPLAINT: Abdominal pain, vomiting, diarrhea, blood in urine HPI: This is a 73-year-old female who presents emergency department due to concern for multiple symptoms including abdominal pain, nausea and vomiting, diarrhea, and blood in her urine. Patient states she did not drink enough water yesterday, and when she urinated in the afternoon she noticed blood. She had not noticed any recent or preceding dysuria, frequency, urgency. She has had prior UTIs. No history of kidney problems. She states today she felt weak and unwell. She states she had nausea, developed abdominal pain centrally and slightly right-sided which did radiate into the right back. She noticed slight burning with urination. She also had several episodes of nonbloody diarrhea. She denies any change in medications, change in diet, or known sick contacts. No history of PUD, IBS, or IBD. PAST MEDICAL HISTORY:See Below PAST SURGICAL HISTORY:See Below FAMILY HISTORY:See Below SOCIAL HISTORY:See Below HOME MEDICATIONS:See Below ALLERGIES:See Below VITALS:See Below PHYSICAL EXAMINATION: GENERAL: alert, ill appearing, well nourished, no distress, non-toxic EYE EXAM: normal conjunctiva, PERRL and EOM's grossly intact OROPHARYNX: no exudate, no erythema, lips, buccal mucosa, and tongue normal and mucous membranes are dry NECK: supple, no nuchal rigidity, no adenopathy, non-tender LUNGS: Clear to auscultation. Normal chest wall mechanics, no w/r/r HEART: no murmurs, S1 normal and S2 normal ABDOMEN: abdomen soft, discomfort with palpation centrally and to the right of midline, normo-active bowel sounds, no masses, no rebound or guarding. BACK: Back is symmetrical on inspection and there is no deformity, no midline tenderness, no CVA tenderness. SKIN: no rashes, petechiae, orbruising UPPER EXTREMITIES: upper extremities are grossly normal. FROM, nml pulses b/l. LOWER EXTREMITIES: No pitting edema. FROM, nml pulses b/l. NEURO EXAM: Normal sensorium, cranial nerves II-XII grossly intact, normal speech, no facial droop,nogross weakness of arms, no gross weakness of legs. Gross sensation intact. No ataxia. Vital Signs: reviewed and remarkable Differential Diagnosis: anemia, hypoglycemia, hyponatremia, hypernatremia, urinary tract infection, pneumonia, bronchitis, sepsis, gastroenteritis, DKA, colitis, viral syndrome, medication ADR, as well as others were considered MEDICAL DECISION MAKING: This is a 73-year-old female who presents emergency department due to concern for abdominal pain, vomiting and diarrhea. Patient describes being weak on arrival here and did require assistance from nursing staff to get to the bathroom upon arrival in the patient room. She was afebrile and vital signs stable. She was ill-appearing at bedside. Labs drawn and sent, IV established, EKG performed at bedside interpreted me and patient monitored on telemetry. Patient was started on IV fluids and given IV Tylenol initially for pain. Urine collected and sent additionally. Patient sent for CT of the abdomen pelvis. Patient had persistent pain and IV morphine also given. Urinalysis revealed infection. No prior urine cultures for comparison, so patient started on IV Rocephin. CT suggestive of pyelonephritis as read by outside radiology. No evidence for CRESENCIO. Patient was noted to be hyperglycemic, I suspect this is stress and infection. Borderline anion gap noted however patient clinically dehydrated and with GI losses I suspect this is more likely from dehydration than true DKA. Patient noted to have an elevated lactic acid initially although this was downtrending on repeat. Patient noted to have significant hypomagnesemia and IV repletion was started while in the emergency department. Mild hypokalemia was also noted however oral potassium repletion deferred until patient's nausea could be improved. She was given IV Zofran, and IV Tylenol additionally. Due to concern for persistent pain, nausea, and weakness in the setting of known infection, case discussed with the hospitalist team for additional inpatient evaluation and management. Patient verbalized understanding of all results and was in agreement with the plan. Consultation(s): 0308: Discussed with Dr. Lawson, [facility] hospitalist team, for additional evaluation and management ER Treatment Provided: See below Diagnostics Interpreted By Me: -ECG: Normal sinus at 90, left axis, normal intervals, no acute ST/T wave changes -Cardiac Monitoring: An order was placed for continuous cardiac monitoring. The monitor shows a rate of 97 with normal sinus rhythm. -Laboratory studies: As stated above and show below. -Imaging studies: ct abd/pelvis: no sbo, no perf Triage Nursing Note Reviewed Prior/Outside Records Reviewed Past Med/Surg History Problem List (Updated 06/02/24 @ 03:29 by Meena Padilla DO) Hyperglycemia (Acute) Generalized weakness (Acute) Hypokalemia (Acute) Hypomagnesemia (Acute) Acute pyelonephritis (Acute) Diarrhea (Acute) Nausea & vomiting (Acute) Abdominal pain (Acute) Thoracic aorta atherosclerosis NSTEMI (non-ST elevated myocardial infarction) Chest pain (Acute) Diabetes mellitus type 2 in nonobese (Acute) Family history of coronary artery disease (Acute) Lab test negative for COVID-19 virus (Acute) Elevated troponin (Acute) Social History Smoking Status: Never smoker Hx Alcohol Use: No Hx Substance Use: No Preferred Language: Lithuanian Communication Ability: Effective 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 ON HOLD 12/30/21 12/30/21 omeprazole 40 mg capsule,delayed 40 mg PO DAILYBB 12/30/21 12/30/21 release Previous Rx's Medication Instructions Recorded aspirin 81 mg tablet,delayed 81 mg PO QAM #30 tabs 01/01/22 release atorvastatin 40 mg tablet 80 mg (2 x 40 mg) PO HS #60 tabs 01/01/22 nitroglycerin 0.4 mg sublingual 0.4 mg sublingual UD PRN chest 01/01/22 tablet (Nitrostat) pain #30 tabs Results & Data (ED) Vital Signs Vital Signs - 24 hr 06/01/24 23:19 06/01/24 23:37 06/02/24 00:38 Temperature 37.1 C Temperature Source Oral Pulse Rate 113 H 98 H 98 H Pulse Rate from SpO2 Sensor Respiratory Rate 24 24 Respiratory Effort / Characteristics Non-Labored Spontaneous Respiratory Depth Normal Respiratory Pattern Regular Blood Pressure 163/104 H 132/67 Blood Pressure Mean 123 88 Pulse Oximetry 98 95 Oxygen Delivery Method Room Air Sepsis Recent Fever Within 48 Hours No Sepsis New/Unexplained Change in Mental Status No Sepsis Action Taken by Nursing No Action Required 06/02/24 02:00 06/02/24 02:13 Temperature Temperature Source Pulse Rate 84 84 Pulse Rate from SpO2 Sensor 85 Respiratory Rate 22 22 Respiratory Effort / Characteristics Respiratory Depth Respiratory Pattern Blood Pressure 138/70 Blood Pressure Mean 92 Pulse Oximetry 95 95 Oxygen Delivery Method Sepsis Recent Fever Within 48 Hours Sepsis New/Unexplained Change in Mental Status Sepsis Action Taken by Nursing Laboratory Data 06/01/24 23:40 06/01/24 23:40 Lab Results 06/01/24 06/02/24 06/02/24 Range/Units 23:40 01:26 01:57 WBC 5.49 (4.8-10.8) K/ul RBC 4.17 L (4.20-5.40) M/uL Hgb 11.6 L (12.0-16.0) g/dl Hct 37.8 (37.0-47.0) % MCV 90.6 (80.0-100.0) fL MCH 27.8 (25.0-34.0) pg MCHC 30.7 L (32.0-36.0) g/dL RDW Std Deviation 50.2 H (36.4-46.3) fL RDW Coeff of Susan 15.1 H (11.5-14.5) % Plt Count 343 (130-400) K/uL MPV 8.9 L (9.4-12.4) fL Immature Gran % (Auto) 0.4 % Neut % (Auto) 83.0 % Lymph % (Auto) 12.6 % [place] % (Auto) 0.5 % Eos % (Auto) 2.6 % Baso % (Auto) 0.9 % Neut # (Auto) 4.56 (1.40-6.50) K/uL Lymph # (Auto) 0.69 L (1.20-3.40) K/uL [place] # (Auto) 0.03 L (0.11-0.59) K/uL Eos # (Auto) 0.14 (0.00-0.50) K/uL Baso # (Auto) 0.05 (0.00-0.20) K/uL Immature Gran # (Auto) 0.02 (0.01-0.20) K/uL Sodium 139 (136-145) mmol/L Potassium 3.4 L (3.5-5.1) mmol/L Chloride 102 (98-107) mmol/L Carbon Dioxide 23 (21-32) mmol/L Anion Gap 14 H (3-11) BUN 24 H (6-23) mg/dl Creatinine 0.90 (0.6-1.2) mg/dl Est Cr Clr Drug Dosing 42.2 ml/min eGFR 68.35 BUN/Creatinine Ratio 26.7 H (10-20) Glucose 238 H (70-99(Fasting)) mg/dl Lactate 3.6 H* 2.2 H* (0.4-2.0) mmol/L Calcium 9.5 (8.6-10.3) mg/dl Magnesium 1.4 L (1.7-2.4) mg/dl Total Bilirubin 0.4 (0.2-1.0) mg/dl AST 21 (13-39) U/L ALT 19 (7-52) U/L Alkaline Phosphatase 86 (34-104) U/L Total Protein 7.4 (6.0-8.3) gm/dl Albumin 4.3 (3.4-5.0) gm/dl Globulin 3.1 (2.5-4.0) gm/dl Albumin/Globulin Ratio 1.4 (0.9-2) Lipase 50 (11-82) U/L Urine Color [place] Urine Appearance Turbid A (Clear) Urine pH 5.0 (4.5-7.5) Ur Specific [place] 1.036 H (1.000-1.030) Urine Protein 1+ H (Negative) Urine Glucose (UA) 3+ H (Negative) Urine Ketones 1+ H (Negative) Urine Blood 3+ H (Negative) Urine Nitrite Negative (Negative) Urine Bilirubin Negative (Negative) Urine Urobilinogen Negative (Negative) Ur Leukocyte Esterase 2+ H (Negative) Urine WBC (Auto) >50 H (0-5) /hpf Urine RBC (Auto) >20 H (0-2) /hpf U Hyaline Cast (Auto) 0-2 (0-2) /lpf U Epithel Cells (Auto) 0-2 (0-2) /hpf Urine Bacteria (Auto) 4+ H (None Seen) Calcium Oxalate Crystal Present A (None Prsent) Urine Yeast Present A (None Prsent) Administered Medications Discontinued Medications Sodium Chloride (Nss) 1,000 mls @ 125 mls/hr IV .Q8H AVRIL Stop: 06/02/24 23:29 Last Infusion: 06/02/24 03:14 Dose: Infused Documented By: Admin: 06/01/24 23:50 Dose: 125 mls/hr Documented By: FLAQUITO Acetaminophen (Ofirmev) 1,000 mg in 100 mls @ 400 mls/hr IV NOW STA Stop: 06/01/24 23:53 Last Infusion: 06/02/24 00:12 Dose: Infused Documented By: Admin: 06/01/24 23:53 Dose: 400 mls/hr Documented By: FLAQUITO Magnesium Sulfate/Dextrose (Magnesium Sulfate / D5w) 1 gm in 100 mls @ 100 mls/hr IV Q1H AVRIL Stop: 06/02/24 02:10 Last Infusion: 06/02/24 02:22 Dose: Infused Documented By: Admin: 06/02/24 01:22 Dose: 100 mls/hr Documented By: Infusion: 06/02/24 01:22 Dose: Infused Documented By: Admin: 06/02/24 00:15 Dose: 100 mls/hr Documented By: FLAQUITO Ceftriaxone Sodium (Rocephin) 2,000 mg in 50 mls @ 100 mls/hr IV NOW STA Stop: 06/02/24 03:04 Last Infusion: 06/02/24 03:15 Dose: Infused Documented By: Admin: 06/02/24 02:44 Dose: 100 mls/hr Documented By: FLAQUITO Ioversol (Optiray 320 100ml) 94 ml IV ONCE ONE Stop: 06/02/24 00:29 Last Admin: 06/02/24 00:28 Dose: 94 ml Documented By: MARGUERITE Ketorolac Tromethamine (Ketorolac Tromethamine 15 Mg/Ml Vial) 10 mg IV NOW ONE Stop: 06/02/24 02:42 Last Admin: 06/02/24 02:46 Dose: 10 mg Documented By: FLAQUITO Morphine Sulfate (Morphine Sulfate 2 Mg/Ml Carp) 2 mg IV NOW STA Stop: 06/02/24 00:54 Last Admin: 06/02/24 00:55 Dose: 2 mg Documented By: FLAQUITO Ondansetron HCl (Ondansetron Inj 2 Mg/Ml 2 Ml Vial) 4 mg IV NOW STA Stop: 06/02/24 02:42 Last Admin: 06/02/24 02:46 Dose: 4 mg Documented By: FLAQUITO Imaging Data Radiologist's Impression: Abdomen/Pelvis CT 06/01/24 23:39 EXAM: CT abd pelvis IV con only CLINICAL HISTORY: Patient reporting mid abdominal pain, chills, vomiting and diarrhea. She noted hematuria last night. 94 ml opti 320 PW/GS TECHNIQUE: Contiguous axial images were obtained from the level of the diaphragm to the pubic symphysis with intravenous contrast. Coronal and sagittal reconstructions were likewise performed and indicated to increase the sensitivity for detecting clinically relevant pathology. If IV contrast material had not been administered, the likelihood of detecting abnormalities relevant to the patient's condition would have been substantially decreased. CT scan was performed according to ALARA (as low as reasonable achievable). COMPARISON: None FINDINGS: The visualized lung bases are clear. The liver is normal in size and attenuation. No focal liver lesions are seen. There is no intra or extrahepatic biliary ductal dilatation. Hepatic vasculature is patent. The gallbladder is surgically removed.. CBD and central IHBR appears dilated. Diameter of CBD measuring up to 12 mm. The spleen, pancreas, and adrenal glands are unremarkable. Bulky right kidney with mild hydronephrosis and significant perinephric fat stranding and mild fluid collection is seen. The left kidney is normal in size and attenuation. The left ureter is normal in caliber and no ureteral calculi are seen. The bladder is normal in contour. Pelvic viscera are unremarkable. No focal or diffuse bowel wall thickening or evidence of bowel obstruction is identified. No inflamed appendix is visualized in the right lower quadrant. Abdominal and pelvic vasculature is patent. No adenopathy or fluid collections are seen. No aggressive appearing osseous lesions are identified. IMPRESSION: 1. Bulky right kidney with mild hydronephrosis and significant perinephric fat stranding - likely pyelonephritis. 2. Dilated common bile duct and central intra hepatic biliary radicals - likely due to post cholecystectomy. Electronically signed by Roberto Dwyer 06-02-2024 02:21 AM Discharge Plan Visit Data Chief Complaint: Abdominal Pain Stated Complaint: CHILLS,VOMITING,DIARRHEA,ABD PAIN,UTI,HEMATURIA ED Provider: Meena Padilla Discharge Problem: Abdominal pain, Nausea & vomiting, Diarrhea, Acute pyelonephritis, Hypomagnesemia, Hypokalemia, Generalized weakness, Hyperglycemia Forms Stand Alone Forms: [facility] Prescriptions Prescriptions: No Action Tradjenta 5 mg tablet 5 mg PO .DAILY AT NOON Invokana 300 mg tablet 300 mg PO DAILYBB metformin 1,000 mg Tablet 1,000 mg PO . ON HOLD Rx Instructions: told on 12/30/21 to hold for 2 days omeprazole 40 mg Capsule,Delayed Release(Dr/Ec) 40 mg PO DAILYBB atorvastatin 40 mg Tablet 80 mg PO HS Qty: 60 0RF aspirin 81 mg Tablet,Delayed Release (Dr/Ec) 81 mg PO QAM Qty: 30 0RF nitroglycerin [Nitrostat] 0.4 mg Tablet, Sublingual 0.4 mg sublingual UD PRN (Reason: chest pain) Qty: 30 0RF Rx Instructions: max of 3 tab at a time, each one at 5 minutes apart from prior. Referrals Referrals: Jose Blount MD [Primary Care Provider] -
[2024-06-01] MEDS: ACETAMINOPHEN 1,000 MG/100 ML VIAL IV STA (23:53)
[2024-06-01 23:54] LABS: Hematocrit (blood only) 37.8 % (37.0-47.0); Hemoglobin 11.6 g/dl (12.0-16.0); Mean Corpuscular Hemoglobin 27.8 pg (25.0-34.0); Mean Corpuscular Hgb Conc 30.7 g/dL (32.0-36.0); Mean Corpuscular Volume 90.6 fL (80.0-100.0); Mean Platelet Volume 8.9 fL (9.4-12.4); Platelet Count 343 K/uL (130-400); RDW Coefficient of Variation 15.1 % (11.5-14.5); RDW Standard Deviation 50.2 fL (36.4-46.3); Red Blood Count 4.17 M/uL (4.20-5.40); White Blood Count 5.49 K/ul (4.8-10.8)
[2024-06-02 00:09] LABS: Albumin Globulin Ratio 1.4 (0.9-2); Albumin Level 4.3 gm/dl (3.4-5.0); BUN Creatinine Ratio 26.7 (10-20); Bilirubin,Total 0.4 mg/dl (0.2-1.0); Calcium 9.5 mg/dl (8.6-10.3); Creatinine Clr Calc Pharmacy 42.2 ml/min; Globulin 3.1 gm/dl (2.5-4.0); Magnesium 1.4 mg/dl (1.7-2.4); Potassium 3.4 mmol/L (3.5-5.1); Total Protein 7.4 gm/dl (6.0-8.3)
[2024-06-02] MEDS: MAGNESIUM SULFATE / D5W 1 GM/100 ML BAG IV SCH (00:15)
[2024-06-02 00:21] LABS: Basophils # (auto) 0.05 K/uL (0.00-0.20); Basophils % (auto) 0.9 %; Eosinophils # (auto) 0.14 K/uL (0.00-0.50); Eosinophils % (auto) 2.6 %; Immature Granulocytes # (auto) 0.02 K/uL (0.01-0.20); Immature Granulocytes % (auto) 0.4 %; Lymphocytes # (auto) 0.69 K/uL (1.20-3.40); Lymphocytes % (auto) 12.6 %; Monocytes # (auto) 0.03 K/uL (0.11-0.59); Monocytes % (auto) 0.5 %; Neutrophils # (auto) 4.56 K/uL (1.40-6.50)
[2024-06-02] MEDS: OPTIRAY 320 100ml IV ONE (00:28)
[2024-06-02] MEDS: MoRPHine SULFATE 2 MG/ML CARP IV STA (00:55)
--- NOTE | 2024-06-02 02:22 | CT Scan Report ---
EXAM: CT abd pelvis IV con only CLINICAL HISTORY: Patient reporting mid abdominal pain, chills, vomiting and diarrhea. She noted hematuria last night. 94 ml opti 320 PW/GS TECHNIQUE: Contiguous axial images were obtained from the level of the diaphragm to the pubic symphysis with intravenous contrast. Coronal and sagittal reconstructions were likewise performed and indicated to increase the sensitivity for detecting clinically relevant pathology. If IV contrast material had not been administered, the likelihood of detecting abnormalities relevant to the patient's condition would have been substantially decreased. CT scan was performed according to ALARA (as low as reasonable achievable). COMPARISON: None FINDINGS: The visualized lung bases are clear. The liver is normal in size and attenuation. No focal liver lesions are seen. There is no intra or extrahepatic biliary ductal dilatation. Hepatic vasculature is patent. The gallbladder is surgically removed.. CBD and central IHBR appears dilated. Diameter of CBD measuring up to 12 mm. The spleen, pancreas, and adrenal glands are unremarkable. Bulky right kidney with mild hydronephrosis and significant perinephric fat stranding and mild fluid collection is seen. The left kidney is normal in size and attenuation. The left ureter is normal in caliber and no ureteral calculi are seen. The bladder is normal in contour. Pelvic viscera are unremarkable. No focal or diffuse bowel wall thickening or evidence of bowel obstruction is identified. No inflamed appendix is visualized in the right lower quadrant. Abdominal and pelvic vasculature is patent. No adenopathy or fluid collections are seen. No aggressive appearing osseous lesions are identified. IMPRESSION: 1. Bulky right kidney with mild hydronephrosis and significant perinephric fat stranding - likely pyelonephritis. 2. Dilated common bile duct and central intra hepatic biliary radicals - likely due to post cholecystectomy. Electronically signed by Roberto Dwyer 06-02-2024 02:21 AM
[2024-06-02 02:28] LABS: Appearance Urine Turbid (Clear); Bacteria Urine Automated 4+ (None Seen); Bilirubin Urine Negative (Negative); Blood Urine 3+ (Negative); Calcium Oxalate Crystals Urine Present (None Prsent); Cast Urine Automated 0-2 /lpf (0-2); Color Urine Orange; Epithelial Cell Urine Auto 0-2 /hpf (0-2); Glucose Urine UA 3+ (Negative); Ketones Urine 1+ (Negative); Leukocyte Esterase Urine 2+ (Negative); Nitrite Urine Negative (Negative); Protein Urine 1+ (Negative); RBC Urine Automated >20 /hpf (0-2); Specific Gravity Urine 1.036 (1.000-1.030); Urobilinogen Urine Negative (Negative); WBC Urine Automated >50 /hpf (0-5)
[2024-06-02] MEDS: cefTRIAXone SODIUM 2,000 MG/50 ML BAG IV STA (02:44)
[2024-06-02] MEDS: ONDANSETRON INJ 2 MG/ML 2 ML VIAL IV STA (02:46)
[2024-06-02] MEDS: KETOROLAC TROMETHAMINE 15 MG/ML VIAL IV ONE (02:46)
--- NOTE | 2024-06-02 03:26 | History & Physical Report ---
Date of Service June 02, 2024 Assessment & Plan (1) Complicated UTI (urinary tract infection): Plan: Pyelonephritis, no sepsis for now Anemia secondary to hematuria chronic diastolic heart failure (EF 50%, TTE 2023), patient on dry side hx CAD status post stent/PVD hypertension, stable GERD, on PPI DM2 on oral medications, suboptimal control as of recent hemoglobin A1c of 7.6 last month Hypokalemia secondary to decreased p.o. intake Admit to F CS, ceftriaxone Hold aspirin for now given hematuria causing anemia follow H&H, transfuse PRBC if hemoglobin less than 8 and or for symptomatic anemia Replace electrolytes Basal bolus insulin, ISS BG goal 1 10-1 40, carb count coverage DVT prophylaxis. SCDs re: bleed Full code Text document was generated using [employer] voice recognition software. It may contain grammatical or spelling errors. Kindly contact undersigned for clarification of any documentation item in question. History of Present Illness Chief Complaint: Hematuria, back pain Primary Care Provider: Jose Blount MD History obtained from patient and records. Medical history significant for chronic diastolic heart failure (EF 50%, TTE 2023), CAD status post stent, PVD, hypertension, hyperlipidemia, GERD, DM2 on oral medications, cervical dysplasia, mood disorder. Last confinement December 2021 for chest pain, ACS ruled out. Patient not feeling well the last couple of days. Dysuria/hematuria symptoms with achy right-sided flank/abdominal pain. Some nausea, no emesis. Patient denies chest pain, SOB. Outpatient UA recommended by PCP. Ceftriaxone administered at the ER. 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 ON HOLD 12/30/21 06/02/24 History omeprazole 40 mg capsule,delayed 40 mg PO DAILYBB 12/30/21 06/02/24 History release aspirin 81 mg tablet,delayed 81 mg PO QAM #30 tabs 01/01/22 06/02/24 Rx release nitroglycerin 0.4 mg sublingual 0.4 mg sublingual UD PRN chest 01/01/22 06/02/24 Rx tablet (Nitrostat) pain #30 tabs Past Med/Surg History Problem List (Updated 06/02/24 @ 08:10 by Fantasma Partida MD) Complicated UTI (urinary tract infection) Hyperglycemia (Acute) Generalized weakness (Acute) Hypokalemia (Acute) Hypomagnesemia (Acute) Acute pyelonephritis (Acute) Diarrhea (Acute) Nausea & vomiting (Acute) Abdominal pain (Acute) Thoracic aorta atherosclerosis NSTEMI (non-ST elevated myocardial infarction) Chest pain (Acute) Diabetes mellitus type 2 in nonobese (Acute) Family history of coronary artery disease (Acute) Lab test negative for COVID-19 virus (Acute) Elevated troponin (Acute) Social History Smoking Status: Never smoker Hx Alcohol Use: No Hx Substance Use: No Preferred Language: Mauritian Communication Ability: 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 Beliefs That Will Affect Care: None marital status: Current Living Situation: Spouse Current Living Situation Comment: lives with spouse in 2 story home Other Information That Helps Us Care for You: No Feels Safe at Home: Yes Safety Concerns: Feels Safe At This Time Assistive Devices: Glasses Review of Systems Review of Systems: As per HPI, all other systems reviewed and negative Physical Exam Physical Exam: GENERAL: Comfortable, pleasant, no respiratory distress SKIN: Pallor, warm HEENT: Pale palpebral conjunctivae, no ptosis, dry buccal mucosa NECK : Supple, no tenderness CHEST : CTA, no tenderness HEART : RRR, no obvious murmurs ABDOMEN: Some distention, right-sided abdominal tenderness EXTREMITIES : No LE swelling/tenderness, no other conspicuous deformities noted NEUROLOGIC : Coherent, no facial asymmetry, no other gross focality Results & Data Results & Data Vital Signs (Past 12 Hours) Vital Signs Temp Pulse Resp BP Pulse Ox O2 Del Method 06/02/24 02:13 84 22 138/70 95 06/02/24 02:00 84 22 95 06/02/24 00:38 98 H 24 132/67 95 06/01/24 23:37 98 H 06/01/24 23:19 37.1 C 113 H 24 163/104 H 98 Room Air Laboratory Results Laboratory Results WBC 5.49 K/ul (4.8-10.8) 06/01/24 23:40 RBC 4.17 M/uL (4.20-5.40) L 06/01/24 23:40 Hgb 11.6 g/dl (12.0-16.0) L 06/01/24 23:40 Hct 37.8 % (37.0-47.0) 06/01/24 23:40 MCV 90.6 fL (80.0-100.0) 06/01/24 23:40 MCH 27.8 pg (25.0-34.0) 06/01/24 23:40 MCHC 30.7 g/dL (32.0-36.0) L 06/01/24 23:40 RDW Std Deviation 50.2 fL (36.4-46.3) H 06/01/24 23:40 RDW Coeff of Susan 15.1 % (11.5-14.5) H 06/01/24 23:40 Plt Count 343 K/uL (130-400) 06/01/24 23:40 MPV 8.9 fL (9.4-12.4) L 06/01/24 23:40 Immature Gran % (Auto) 0.4 % 06/01/24 23:40 Neut % (Auto) 83.0 % 06/01/24 23:40 Lymph % (Auto) 12.6 % 06/01/24 23:40 Beaver % (Auto) 0.5 % 06/01/24 23:40 Eos % (Auto) 2.6 % 06/01/24 23:40 Baso % (Auto) 0.9 % 06/01/24 23:40 Neut # (Auto) 4.56 K/uL (1.40-6.50) 06/01/24 23:40 Lymph # (Auto) 0.69 K/uL (1.20-3.40) L 06/01/24 23:40 Beaver # (Auto) 0.03 K/uL (0.11-0.59) L 06/01/24 23:40 Eos # (Auto) 0.14 K/uL (0.00-0.50) 06/01/24 23:40 Baso # (Auto) 0.05 K/uL (0.00-0.20) 06/01/24 23:40 Immature Gran # (Auto) 0.02 K/uL (0.01-0.20) 06/01/24 23:40 Sodium 139 mmol/L (136-145) 06/01/24 23:40 Potassium 3.4 mmol/L (3.5-5.1) L 06/01/24 23:40 Chloride 102 mmol/L (98-107) 06/01/24 23:40 Carbon Dioxide 23 mmol/L (21-32) 06/01/24 23:40 Anion Gap 14 (3-11) H 06/01/24 23:40 BUN 24 mg/dl (6-23) H 06/01/24 23:40 Creatinine 0.90 mg/dl (0.6-1.2) 06/01/24 23:40 Est Cr Clr Drug Dosing 42.2 ml/min 06/01/24 23:40 eGFR 68.35 06/01/24 23:40 BUN/Creatinine Ratio 26.7 (10-20) H 06/01/24 23:40 Glucose 238 mg/dl (70-99(Fasting)) H 06/01/24 23:40 Lactate 2.2 mmol/L (0.4-2.0) H* 06/02/24 01:26 Calcium 9.5 mg/dl (8.6-10.3) 06/01/24 23:40 Magnesium 1.4 mg/dl (1.7-2.4) L 06/01/24 23:40 Total Bilirubin 0.4 mg/dl (0.2-1.0) 06/01/24 23:40 AST 21 U/L (13-39) 06/01/24 23:40 ALT 19 U/L (7-52) 06/01/24 23:40 Alkaline Phosphatase 86 U/L (34-104) 06/01/24 23:40 Total Protein 7.4 gm/dl (6.0-8.3) 06/01/24 23:40 Albumin 4.3 gm/dl (3.4-5.0) 06/01/24 23:40 Globulin 3.1 gm/dl (2.5-4.0) 06/01/24 23:40 Albumin/Globulin Ratio 1.4 (0.9-2) 06/01/24 23:40 Lipase 50 U/L (11-82) 06/01/24 23:40 Urine Color Superior 06/02/24 01:57 Urine Appearance Turbid (Clear) A 06/02/24 01:57 Urine pH 5.0 (4.5-7.5) 06/02/24 01:57 Ur Specific Horace 1.036 (1.000-1.030) H 06/02/24 01:57 Urine Protein 1+ (Negative) H 06/02/24 01:57 Urine Glucose (UA) 3+ (Negative) H 06/02/24 01:57 Urine Ketones 1+ (Negative) H 06/02/24 01:57 Urine Blood 3+ (Negative) H 06/02/24 01:57 Urine Nitrite Negative (Negative) 06/02/24 01:57 Urine Bilirubin Negative (Negative) 06/02/24 01:57 Urine Urobilinogen Negative (Negative) 06/02/24 01:57 Ur Leukocyte Esterase 2+ (Negative) H 06/02/24 01:57 Urine WBC (Auto) >50 /hpf (0-5) H 06/02/24 01:57 Urine RBC (Auto) >20 /hpf (0-2) H 06/02/24 01:57 U Hyaline Cast (Auto) 0-2 /lpf (0-2) 06/02/24 01:57 U Epithel Cells (Auto) 0-2 /hpf (0-2) 06/02/24 01:57 Urine Bacteria (Auto) 4+ (None Seen) H 06/02/24 01:57 Calcium Oxalate Crystal Present (None Prsent) A 06/02/24 01:57 Urine Yeast Present (None Prsent) A 06/02/24 01:57 Impressions Abdomen/Pelvis CT 06/01/24 23:39 EXAM: CT abd pelvis IV con only CLINICAL HISTORY: Patient reporting mid abdominal pain, chills, vomiting and diarrhea. She noted hematuria last night. 94 ml opti 320 PW/GS TECHNIQUE: Contiguous axial images were obtained from the level of the diaphragm to the pubic symphysis with intravenous contrast. Coronal and sagittal reconstructions were likewise performed and indicated to increase the sensitivity for detecting clinically relevant pathology. If IV contrast material had not been administered, the likelihood of detecting abnormalities relevant to the patient's condition would have been substantially decreased. CT scan was performed according to ALARA (as low as reasonable achievable). COMPARISON: None FINDINGS: The visualized lung bases are clear. The liver is normal in size and attenuation. No focal liver lesions are seen. There is no intra or extrahepatic biliary ductal dilatation. Hepatic vasculature is patent. The gallbladder is surgically removed.. CBD and central IHBR appears dilated. Diameter of CBD measuring up to 12 mm. The spleen, pancreas, and adrenal glands are unremarkable. Bulky right kidney with mild hydronephrosis and significant perinephric fat stranding and mild fluid collection is seen. The left kidney is normal in size and attenuation. The left ureter is normal in caliber and no ureteral calculi are seen. The bladder is normal in contour. Pelvic viscera are unremarkable. No focal or diffuse bowel wall thickening or evidence of bowel obstruction is identified. No inflamed appendix is visualized in the right lower quadrant. Abdominal and pelvic vasculature is patent. No adenopathy or fluid collections are seen. No aggressive appearing osseous lesions are identified. IMPRESSION: 1. Bulky right kidney with mild hydronephrosis and significant perinephric fat stranding - likely pyelonephritis. 2. Dilated common bile duct and central intra hepatic biliary radicals - likely due to post cholecystectomy. Electronically signed by Roberto Dwyer 06-02-2024 02:21 AM Diagnostic Findings EKG as per my interpretation :Rate 90, NSR, LAD, LAFB, nonspecific T wave abnormalities
[2024-06-02] MEDS: POTASSIUM CHLORIDE CRTAB 20 MEQ TABCR PO STA ×2 (03:41→08:43)
[2024-06-02] MEDS: POTASSIUM CHLORIDE 20 MEQ in LACTATED RINGER'S 1,000 ML IV STA (03:41)
[2024-06-02] MEDS ORDERED: PROMETHAZINE 6.25 MG/50.25 ML BAG IV PRN (04:13)
[2024-06-02] MEDS ORDERED: PHENAZOPYRIDINE HCL 100 MG TAB PO PRN (04:16)
[2024-06-02] MEDS ORDERED: GLUCAGON FOR INJ 1 MG VIAL SQ PRN ×2 (04:30→05:35)
[2024-06-02] MEDS ORDERED: DEXTROSE 50% 50 ML SYRINGE IV PRN ×2 (04:30→05:35)
[2024-06-02] MEDS ORDERED: GLUCOSE 40% GEL 15 GM TUBE PO PRN ×2 (04:30→05:35)
[2024-06-02] MEDS ORDERED: CARBOHYDRATES FOR HYPOGLYCEMIA PO PRN ×2 (04:30→05:35)
[2024-06-02] MEDS ORDERED: GLUCOSE 10 TAB/TUBE PO PRN ×2 (04:30→05:35)
[2024-06-02 06:20] LABS: Base Excess VBG -2.4 mEq/L; HCO3 VBG 24 mmol/L; Oxygen Saturation VBG < 60.0 %; PCO2 VBG 45 mmHg (38-50); PO2 VBG 30 mmHg; pH VBG 7.33 (7.36-7.41)
[2024-06-02 06:28] LABS: Basophils # (auto) 0.02 K/uL (0.00-0.20); Basophils % (auto) 0.2 %; Hematocrit (blood only) 34.4 % (37.0-47.0); Hemoglobin 10.6 g/dl (12.0-16.0); Immature Granulocytes # (auto) 0.08 K/uL (0.01-0.20); Immature Granulocytes % (auto) 0.8 %; Lymphocytes # (auto) 0.38 K/uL (1.20-3.40); Lymphocytes % (auto) 3.7 %; Mean Corpuscular Hemoglobin 27.8 pg (25.0-34.0); Mean Corpuscular Hgb Conc 30.8 g/dL (32.0-36.0); Mean Corpuscular Volume 90.3 fL (80.0-100.0); Mean Platelet Volume 9.1 fL (9.4-12.4); Monocytes # (auto) 0.62 K/uL (0.11-0.59); Monocytes % (auto) 6.1 %; Neutrophils # (auto) 9.11 K/uL (1.40-6.50); Neutrophils % (auto) 89.2 %; Platelet Count 316 K/uL (130-400); RDW Coefficient of Variation 15.2 % (11.5-14.5); RDW Standard Deviation 50.1 fL (36.4-46.3); Red Blood Count 3.81 M/uL (4.20-5.40); White Blood Count 10.21 K/ul (4.8-10.8)
[2024-06-02 06:38] LABS: BUN Creatinine Ratio 22.7 (10-20); Calcium 8.3 mg/dl (8.6-10.3); Creatinine Clr Calc Pharmacy 39.2 ml/min; Magnesium 1.8 mg/dl (1.7-2.4); Potassium 3.4 mmol/L (3.5-5.1)
[2024-06-02] MEDS: INSULIN ASPART PER UNIT CHARGE SC SCH (06:59)
[2024-06-02] MEDS: ACETAMINOPHEN 325 MG TAB PO PRN (08:17)
[2024-06-02] MEDS: PANTOprazole 40 MG TAB PO SCH (08:17)
[2024-06-02] MEDS: LANTUS PER UNIT CHARGE SQ SCH (08:32)
--- NOTE | 2024-06-02 17:02 | Hospitalist Progress Note ---
Date of Service June 02, 2024 Assessment & Plan (1) Complicated UTI (urinary tract infection): Plan: Pyelonephritis, no sepsis for now Anemia secondary to hematuria chronic diastolic heart failure (EF 50%, TTE 2023), patient on dry side hx CAD status post stent/PVD hypertension, stable GERD, on PPI DM2 on oral medications, suboptimal control as of recent hemoglobin A1c of 7.6 last month Hypokalemia secondary to decreased p.o. intake Admit to F CS, ceftriaxone Hold aspirin for now given hematuria causing anemia follow H&H, transfuse PRBC if hemoglobin less than 8 and or for symptomatic anemia Replace electrolytes Basal bolus insulin, ISS BG goal 1 10-1 40, carb count coverage DVT prophylaxis. SCDs re: bleed Full code Text document was generated using [employer] voice recognition software. It may contain grammatical or spelling errors. Kindly contact undersigned for clarification of any documentation item in question. Admission and Anticipated Discharge Date Admission Date: June 02, 2024 Subjective Pt seen at bedside. She was admitted early this AM for abdominal pain and complicated UTI. She feels a little improved. Results & Data Results & Data Vital Signs (Past 12 Hours) Vital Signs Temp Pulse Pulse Pulse Resp BP BP 06/02/24 14:03 36.8 C 90 16 88/58 L 06/02/24 12:28 87 16 83/53 L 06/02/24 08:20 06/02/24 07:57 36.8 C 98 H 20 110/70 06/02/24 05:20 36.5 C 89 16 06/02/24 05:03 98 H 16 100/53 L BP Pulse Ox O2 Del Method 06/02/24 14:03 96 Room Air 06/02/24 12:28 98 Room Air 06/02/24 08:20 Room Air 06/02/24 07:57 97 Room Air 06/02/24 05:20 98/57 L 97 Room Air 06/02/24 05:03 95 Room Air
[2024-06-03] MEDS: cefTRIAXone SODIUM 2,000 MG/50 ML BAG IV SCH (02:53)
[2024-06-03 06:19] LABS: Hematocrit (blood only) 28.7 % (37.0-47.0); Mean Corpuscular Hemoglobin 27.8 pg (25.0-34.0); Mean Corpuscular Hgb Conc 31.4 g/dL (32.0-36.0); Mean Corpuscular Volume 88.6 fL (80.0-100.0); Mean Platelet Volume 9.2 fL (9.4-12.4); Platelet Count 289 K/uL (130-400); RDW Coefficient of Variation 15.9 % (11.5-14.5); RDW Standard Deviation 51.8 fL (36.4-46.3); Red Blood Count 3.24 M/uL (4.20-5.40); White Blood Count 15.18 K/ul (4.8-10.8)
[2024-06-03 06:46] LABS: BUN Creatinine Ratio 21.9 (10-20); Calcium 8.8 mg/dl (8.6-10.3); Creatinine Clr Calc Pharmacy 52.1 ml/min; Potassium 4.1 mmol/L (3.5-5.1)
[2024-06-03] MEDS: oxyCODONE HCL IR 5 MG TAB (IMMEDIATE RELEASE) PO PRN (09:07)
[2024-06-03] MEDS: DOCUSATE SODIUM/SENNA 50/8.6MG TAB PO SCH (10:59)
[2024-06-03] MEDS: POLYETHYLENE (MIRALAX) 17 GM PACK PO SCH (10:59)
--- NOTE | 2024-06-03 17:06 | Electrocardiogram Report ---
Test Reason : Blood Pressure : */* mmHG Vent. Rate : 90 BPM Atrial Rate : 90 BPM P-R Int : 134 ms QRS Dur : 80 ms QT Int : 366 ms P-R-T Axes : -10 -38 7 degrees QTcB Int : 447 ms Normal sinus rhythm Left axis deviation Low voltage QRS Diffuse Minor Nonspecific T wave abnormality Abnormal ECG When compared with ECG of 01-Jan-2022 13:12, T wave inversion no longer evident in Inferior leads T wave inversion no longer evident in Anterolateral leads QT has shortened Confirmed by Eb Ramon ([id number]) on 06/03/2024 5:06:15 PM Referred By: REFERRED SELF Confirmed By: Eb Ramon
--- NOTE | 2024-06-03 17:34 | Hospitalist Progress Note ---
Date of Service June 03, 2024 Assessment & Plan (1) Complicated UTI (urinary tract infection): Plan: Pyelonephritis, no sepsis for now CS, ceftriaxone Hold aspirin for now given hematuria causing anemia follow H&H, transfuse PRBC if hemoglobin less than 8 and or for symptomatic anemia Replace electrolytes Anemia secondary to hematuria Hold aspirin for now given hematuria causing anemia follow H&H, transfuse PRBC if hemoglobin less than 8 and or for symptomatic anemia chronic diastolic heart failure (EF 50%, TTE 2023) Patient euvolemic on today's exam H/O CAD status post stent/PVD HTN Blood pressures are stable GERD on PPI DM2 on oral medications, suboptimal control as of recent hemoglobin A1c of 7.6 last month Hypokalemia secondary to decreased p.o. intake Basal bolus insulin, ISS BG goal 1 10-1 40, carb count coverage Constipation Bowel regimen ordered DVT prophylaxis. SCDs re: bleed Full code Text document was generated using [employer] voice recognition software. It may contain grammatical or spelling errors. Kindly contact undersigned for clarification of any documentation item in question. Admission and Anticipated Discharge Date Admission Date: June 02, 2024 Subjective Pt seen at bedside. She was admitted early this AM for abdominal pain, pyelonephritis and complicated UTI. She still has the right flank and right abdominal pain but seems to be a little bit improved. She complains of constipation. Appetite is good. She denies fever or chills. She denies chest pain or shortness of breath. She denies nausea vomiting or diarrhea. . Review of Systems Review of Systems: As per HPI, all other systems reviewed and negative Physical Exam Physical Exam: General- adult elderly female seen at bedside. She is sitting at the bedside. Head- atraumatic Eyes- PERRL, EOMI, anicteric ENT- oropharynx clear Neck- supple, no JVD, no adenopathy, no thyromegaly; carotids +2/2, no bruits appreciated Lungs- clear to auscultation and percussion Heart- regular rhythm; no murmur, no gallop, no rub appreciated Abdomen- normal bowel sounds, soft, she has a positive Mack sign on the right. Has rather diffuse tenderness in the right abdomen but more in the flank region. Extremities- no pretibial edema, no calf tenderness; peripheral pulses intact Neuro- alert, oriented x 3; PERRL, EOMI; no facial palsy; no dysarthria; motor 5/5 bilaterally; Results & Data Results & Data Vital Signs (Past 12 Hours) Vital Signs Temp Pulse Resp BP Pulse Ox O2 Del Method 06/03/24 14:36 36.6 C 60 18 100/66 96 Room Air 06/03/24 07:39 36.5 C 94 H 18 110/71 97 Room Air Diagnostic Findings Laboratory Results WBC 15.18 K/ul (4.8-10.8) H 06/03/24 05:47 RBC 3.24 M/uL (4.20-5.40) L 06/03/24 05:47 Hgb 9.0 g/dl (12.0-16.0) L 06/03/24 05:47 Hct 28.7 % (37.0-47.0) L 06/03/24 05:47 MCV 88.6 fL (80.0-100.0) 06/03/24 05:47 MCH 27.8 pg (25.0-34.0) 06/03/24 05:47 MCHC 31.4 g/dL (32.0-36.0) L 06/03/24 05:47 RDW Std Deviation 51.8 fL (36.4-46.3) H 06/03/24 05:47 RDW Coeff of Susan 15.9 % (11.5-14.5) H 06/03/24 05:47 Plt Count 289 K/uL (130-400) 06/03/24 05:47 MPV 9.2 fL (9.4-12.4) L 06/03/24 05:47 Immature Gran % (Auto) 0.8 % 06/02/24 06:02 Neut % (Auto) 89.2 % 06/02/24 06:02 Lymph % (Auto) 3.7 % 06/02/24 06:02 [place] % (Auto) 6.1 % 06/02/24 06:02 Eos % (Auto) 0.0 % 06/02/24 06:02 Baso % (Auto) 0.2 % 06/02/24 06:02 Neut # (Auto) 9.11 K/uL (1.40-6.50) H 06/02/24 06:02 Lymph # (Auto) 0.38 K/uL (1.20-3.40) L 06/02/24 06:02 [place] # (Auto) 0.62 K/uL (0.11-0.59) H 06/02/24 06:02 Eos # (Auto) 0.00 K/uL (0.00-0.50) 06/02/24 06:02 Baso # (Auto) 0.02 K/uL (0.00-0.20) 06/02/24 06:02 Immature Gran # (Auto) 0.08 K/uL (0.01-0.20) 06/02/24 06:02 VBG pH 7.33 (7.36-7.41) L 06/02/24 06:02 VBG pCO2 45 mmHg (38-50) 06/02/24 06:02 VBG pO2 30 mmHg 06/02/24 06:02 VBG HCO3 24 mmol/L 06/02/24 06:02 VBG O2 Saturation < 60.0 % 06/02/24 06:02 VBG Base Excess -2.4 mEq/L 06/02/24 06:02 Sodium 140 mmol/L (136-145) 06/03/24 05:47 Potassium 4.1 mmol/L (3.5-5.1) D 06/03/24 05:47 Chloride 106 mmol/L (98-107) 06/03/24 05:47 Carbon Dioxide 27 mmol/L (21-32) 06/03/24 05:47 Anion Gap 7 (3-11) 06/03/24 05:47 BUN 16 mg/dl (6-23) 06/03/24 05:47 Creatinine 0.73 mg/dl (0.6-1.2) 06/03/24 05:47 Est Cr Clr Drug Dosing 52.1 ml/min 06/03/24 05:47 eGFR 87.87 06/03/24 05:47 BUN/Creatinine Ratio 21.9 (10-20) H 06/03/24 05:47 Glucose 130 mg/dl (70-99(Fasting)) H 06/03/24 05:47 POC Glucose 142 mg/dl (70-99) H 06/03/24 16:34 Lactate 1.8 mmol/L (0.4-2.0) 06/02/24 06:02 Calcium 8.8 mg/dl (8.6-10.3) 06/03/24 05:47 Magnesium 1.8 mg/dl (1.7-2.4) 06/02/24 06:02 Total Bilirubin 0.4 mg/dl (0.2-1.0) 06/01/24 23:40 AST 21 U/L (13-39) 06/01/24 23:40 ALT 19 U/L (7-52) 06/01/24 23:40 Alkaline Phosphatase 86 U/L (34-104) 06/01/24 23:40 Total Protein 7.4 gm/dl (6.0-8.3) 06/01/24 23:40 Albumin 4.3 gm/dl (3.4-5.0) 06/01/24 23:40 Globulin 3.1 gm/dl (2.5-4.0) 06/01/24 23:40 Albumin/Globulin Ratio 1.4 (0.9-2) 06/01/24 23:40 Lipase 50 U/L (11-82) 06/01/24 23:40 Urine Color [place] 06/02/24 01:57 Urine Appearance Turbid (Clear) A 06/02/24 01:57 Urine pH 5.0 (4.5-7.5) 06/02/24 01:57 Ur Specific [place] 1.036 (1.000-1.030) H 06/02/24 01:57 Urine Protein 1+ (Negative) H 06/02/24 01:57 Urine Glucose (UA) 3+ (Negative) H 06/02/24 01:57 Urine Ketones 1+ (Negative) H 06/02/24 01:57 Urine Blood 3+ (Negative) H 06/02/24 01:57 Urine Nitrite Negative (Negative) 06/02/24 01:57 Urine Bilirubin Negative (Negative) 06/02/24 01:57 Urine Urobilinogen Negative (Negative) 06/02/24 01:57 Ur Leukocyte Esterase 2+ (Negative) H 06/02/24 01:57 Urine WBC (Auto) >50 /hpf (0-5) H 06/02/24 01:57 Urine RBC (Auto) >20 /hpf (0-2) H 06/02/24 01:57 U Hyaline Cast (Auto) 0-2 /lpf (0-2) 06/02/24 01:57 U Epithel Cells (Auto) 0-2 /hpf (0-2) 06/02/24 01:57 Urine Bacteria (Auto) 4+ (None Seen) H 06/02/24 01:57 Calcium Oxalate Crystal Present (None Prsent) A 06/02/24 01:57 Urine Yeast Present (None Prsent) A 06/02/24 01:57 Blood Type O Positive 06/02/24 06:02 Antibody Screen NEGATIVE 06/02/24 06:02 Impressions Abdomen/Pelvis CT 06/01/24 23:39 EXAM: CT abd pelvis IV con only CLINICAL HISTORY: Patient reporting mid abdominal pain, chills, vomiting and diarrhea. She noted hematuria last night. 94 ml opti 320 PW/GS TECHNIQUE: Contiguous axial images were obtained from the level of the diaphragm to the pubic symphysis with intravenous contrast. Coronal and sagittal reconstructions were likewise performed and indicated to increase the sensitivity for detecting clinically relevant pathology. If IV contrast material had not been administered, the likelihood of detecting abnormalities relevant to the patient's condition would have been substantially decreased. CT scan was performed according to ALARA (as low as reasonable achievable). COMPARISON: None FINDINGS: The visualized lung bases are clear. The liver is normal in size and attenuation. No focal liver lesions are seen. There is no intra or extrahepatic biliary ductal dilatation. Hepatic vasculature is patent. The gallbladder is surgically removed.. CBD and central IHBR appears dilated. Diameter of CBD measuring up to 12 mm. The spleen, pancreas, and adrenal glands are unremarkable. Bulky right kidney with mild hydronephrosis and significant perinephric fat stranding and mild fluid collection is seen. The left kidney is normal in size and attenuation. The left ureter is normal in caliber and no ureteral calculi are seen. The bladder is normal in contour. Pelvic viscera are unremarkable. No focal or diffuse bowel wall thickening or evidence of bowel obstruction is identified. No inflamed appendix is visualized in the right lower quadrant. Abdominal and pelvic vasculature is patent. No adenopathy or fluid collections are seen. No aggressive appearing osseous lesions are identified. IMPRESSION: 1. Bulky right kidney with mild hydronephrosis and significant perinephric fat stranding - likely pyelonephritis. 2. Dilated common bile duct and central intra hepatic biliary radicals - likely due to post cholecystectomy. Electronically signed by Roberto Dwyer 06-02-2024 02:21 AM Medications Administered Current Inpatient Medications Acetaminophen (Acetaminophen 325 Mg Tab) 650 mg PO QID PRN PRN Reason: pain/fever Stop: 07/02/24 04:12 Last Admin: 06/02/24 08:17 Dose: 650 mg Dextrose (Dextrose 50% 50 Ml Syringe) 25 - 50 ml IV UD PRN; Protocol PRN Reason: Hypoglycemia Protocol Stop: 07/02/24 04:29 Glucagon (Glucagon For Inj 1 Mg Vial) 1 mg SQ UD PRN; Protocol PRN Reason: Hypoglycemia Protocol Stop: 07/02/24 04:29 Glucose (Glucose 40% Gel 15 Gm Tube) 15 - 30 gm PO UD PRN; Protocol PRN Reason: Hypoglycemia Protocol Stop: 07/02/24 04:29 Glucose (Glucose 10 Tab/Tube) 4 - 8 tab PO UD PRN; Protocol PRN Reason: Hypoglycemia Protocol Stop: 07/02/24 04:29 Promethazine HCl (Phenergan) 6.25 mg in 50.25 mls @ 201 mls/hr IV Q6H PRN PRN Reason: Nausea And Vomiting Stop: 07/02/24 04:12 Ceftriaxone Sodium (Rocephin) 2,000 mg in 50 mls @ 100 mls/hr IV Q24H [facility] Stop: 06/13/24 02:29 Last Infusion: 06/03/24 04:18 Dose: Infused Insulin Aspart (Insulin Aspart Per Unit Charge) 0 units SC ACHS AVRIL Stop: 07/02/24 05:34 Last Admin: 06/03/24 12:21 Dose: 5 units Insulin Glargine (Lantus Per Unit Charge) 5 units SQ DAILY [facility] Stop: 07/02/24 08:59 Last Admin: 06/03/24 09:07 Dose: 5 units Miscellaneous (Carbohydrates For Hypoglycemia ) 15 - 30 gm PO UD PRN PRN Reason: Hypoglycemia Treatment Stop: 07/02/24 04:29 Oxycodone HCl (Oxycodone Hcl Ir 5 Mg Tab (Immediate Release)) 5 mg PO Q4H PRN PRN Reason: Pain Stop: 06/16/24 04:12 Last Admin: 06/03/24 09:07 Dose: 5 mg Pantoprazole Sodium (Pantoprazole 40 Mg Tab) 40 mg PO DAILYBB [facility]RIL Stop: 07/02/24 06:29 Last Admin: 06/03/24 05:48 Dose: 40 mg Phenazopyridine HCl (Phenazopyridine Hcl 100 Mg Tab) 100 mg PO TID PRN PRN Reason: Bladder pain Stop: 07/02/24 04:15 Polyethylene Glycol (Polyethylene (Miralax) 17 Gm Pack) 17 gm PO DAILY [facility] Stop: 07/03/24 10:14 Last Admin: 06/03/24 10:59 Dose: 17 gm Senna/Docusate Sodium (Docusate Sodium/Senna 50/8.6mg Tab) 1 tab PO QAM [facility] Stop: 07/03/24 10:14 Last Admin: 06/03/24 10:59 Dose: 1 tab
[2024-06-04 06:21] LABS: Hematocrit (blood only) 29.6 % (37.0-47.0); Hemoglobin 9.3 g/dl (12.0-16.0); Mean Corpuscular Hemoglobin 27.8 pg (25.0-34.0); Mean Corpuscular Hgb Conc 31.4 g/dL (32.0-36.0); Mean Corpuscular Volume 88.4 fL (80.0-100.0); Mean Platelet Volume 9.1 fL (9.4-12.4); Platelet Count 290 K/uL (130-400); RDW Coefficient of Variation 15.6 % (11.5-14.5); RDW Standard Deviation 50.1 fL (36.4-46.3); Red Blood Count 3.35 M/uL (4.20-5.40); White Blood Count 12.13 K/ul (4.8-10.8)
[2024-06-04 06:41] LABS: BUN Creatinine Ratio 16.4 (10-20); Calcium 9.1 mg/dl (8.6-10.3); Creatinine Clr Calc Pharmacy 62.3 ml/min
[2024-06-04 07:42] VITALS: TEMP 97.9; O2SAT 96
[2024-06-04 11:06] VITALS: BP 120/78; PULSE 84; RESP 17
--- NOTE | 2024-06-04 12:44 | Discharge Summary ---
Discharge Summary Date of Service June 04, 2024 Principal Dx & Hospital Course #1 = Principal Diagnosis (1) Complicated UTI (urinary tract infection): Pyelonephritis, no sepsis for now CS, ceftriaxone Hold aspirin for now given hematuria causing anemia follow H&H, transfuse PRBC if hemoglobin less than 8 and or for symptomatic anemia Replace electrolytes Urine culture was positive for Klebsiella and E. coli pansensitive for both. Anemia secondary to hematuria Hold aspirin for now given hematuria causing anemia follow H&H, transfuse PRBC if hemoglobin less than 8 and or for symptomatic anemia The hematuria resolved. If it reoccurs patient will need urology follow-up. chronic diastolic heart failure (EF 50%, TTE 2023) Patient euvolemic on today's exam H/O CAD status post stent/PVD HTN Blood pressures are stable GERD on PPI DM2 on oral medications, suboptimal control as of recent hemoglobin A1c of 7.6 last month Hypokalemia secondary to decreased p.o. intake Basal bolus insulin, ISS BG goal 1 10-1 40, carb count coverage Constipation Bowel regimen ordered DVT prophylaxis. SCDs re: bleed Full code Patient was deemed stable for discharge on this date. She was ambulating tolerating a diet at the time of discharge. Text document was generated using [employer] voice recognition software. It may contain grammatical or spelling errors. Kindly contact undersigned for clarification of any documentation item in question. Notes For Next Care Provider Medication Changes From Visit Pt discharged to home in stable condition. Admission HPI Per Admitting Provider History obtained from patient and records. Medical history significant for chronic diastolic heart failure (EF 50%, TTE 2023), CAD status post stent, PVD, hypertension, hyperlipidemia, GERD, DM2 on oral medications, cervical dysplasia, mood disorder. Last confinement December 2021 for chest pain, ACS ruled out. Patient not feeling well the last couple of days. Dysuria/hematuria symptoms with achy right-sided flank/abdominal pain. Some nausea, no emesis. Patient denies chest pain, SOB. Outpatient UA recommended by PCP. Ceftriaxone administered at the ER. 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 She is sitting at the bedside. Head- atraumatic Eyes- PERRL, EOMI, anicteric ENT- oropharynx clear Neck- supple, no JVD, no adenopathy, no thyromegaly; carotids +2/2, no bruits appreciated Lungs- clear to auscultation and percussion Heart- regular rhythm; no murmur, no gallop, no rub appreciated Abdomen- normal bowel sounds, soft, she has a positive Mack sign on the right. Has rather diffuse tenderness in the right abdomen but more in the flank region. Extremities- no pretibial edema, no calf tenderness; peripheral pulses intact Neuro- alert, oriented x 3; PERRL, EOMI; no facial palsy; no dysarthria; motor 5/5 bilaterally; Updated Medication List Medication Instructions Recorded Confirmed Type linagliptin 5 mg tablet (Tradjenta) 5 mg PO .DAILY AT NOON 12/30/21 06/02/24 History metformin 1,000 mg tablet 1,000 mg PO . ON HOLD 12/30/21 06/02/24 History omeprazole 40 mg capsule,delayed 40 mg PO DAILYBB 12/30/21 06/02/24 History release aspirin 81 mg tablet,delayed 81 mg PO QAM #30 tabs 01/01/22 06/02/24 Rx release nitroglycerin 0.4 mg sublingual 0.4 mg sublingual UD PRN chest 01/01/22 06/02/24 Rx tablet (Nitrostat) pain #30 tabs cefdinir 300 mg capsule 300 mg PO BID 10 days #20 caps 06/04/24 Rx Hospital Stay Data Consultations 06/02/24 03:09 ED Decision to Admit Stat Diagnostic Imagining Performed 06/01/24 23:39 CT abd pelvis IV con only Stat Pending Results Patient Have Any Pending Studies at Discharge: No Discharge Instructions Given to Patient (Per Discharging Provider) Repeat CBC and BMP at hospital follow-up Follow-up with PCP in 3 to 5 days Urology referral as directed Ensure completion of antibiotics Total Time Total Time Spent Total Time Spent (In Minutes): 55 minutes spent in discharge planning for this patient.
== END 2024-06-04 13:30 | disposition home or self-care (01) | DRG 690 ==
LOC: ED 22:56 → 3E 06-02 04:11
DX: F39 Unspecified mood [affective] disorder; E87.6 Hypokalemia; K59.00 Constipation, unspecified; B96.20 Unspecified Escherichia coli [E. coli] as the cause of diseases classified elsewhere; I25.10 Atherosclerotic heart disease of native coronary artery without angina pectoris; Z79.84 Long term (current) use of oral hypoglycemic drugs; Z95.5 Presence of coronary angioplasty implant and graft; Z88.9 Allergy status to unspecified drugs, medicaments and biological substances; I50.32 Chronic diastolic (congestive) heart failure; B96.1 Klebsiella pneumoniae [K. pneumoniae] as the cause of diseases classified elsewhere; E78.5 Hyperlipidemia, unspecified; Z79.899 Other long term (current) drug therapy; Z79.82 Long term (current) use of aspirin; E11.51 Type 2 diabetes mellitus with diabetic peripheral angiopathy without gangrene; K21.9 Gastro-esophageal reflux disease without esophagitis; N12 Tubulo-interstitial nephritis, not specified as acute or chronic; D62 Acute posthemorrhagic anemia; I11.0 Hypertensive heart disease with heart failure; I25.2 Old myocardial infarction